=== PATIENT | male | born 1935 | race Caucasian/White ===

== ENCOUNTER → 2016-05-15 | Outpatient (CLI) | payer OTHER ==
[~2016-05-15] MED LIST: ALROPS OPR; AMLO-110 PO; ASPI81TA28 PO; ATOR-22 PO; BRIM0.2S OPR; GLIP-197 PO; LATA0.5S OPB; LSN/2025 PO; LUTE6CAP PO; MULT-845 PO; VLM5CL
[2016-05-15 12:32] LABS: ALT/SGPT 30 U/L (12-78); AST/SGOT 15 U/L (15-37); BLOOD UREA NITROGEN 30 mg/dl (7-18); BUN/CREATININE RATIO 23.3 (10-20); CARBON DIOXIDE 31 mmol/L (21-32); CHLORIDE 101 mmol/L (98-107); CHOLESTEROL 139 mg/dl (0-200); GLUCOSE 160 mg/dl (70-99); SODIUM 141 mmol/L (136-145)
[2016-05-15 12:43] LABS: ALB/GLOB RATIO 1.2 (0.9-2); ALKALINE PHOSPHATASE 78 U/L (45-117); CHOLESTEROL/HDL RATIO 4.1; HDL CHOLESTEROL 34 mg/dl; LDL CHOLESTEROL CALCULATED 83 mg/dl; TRIGLYCERIDES 110 mg/dl (0-150); VERY LOW DENSITY LIPOPROT CALC 22 mg/dl
[2016-05-15 13:05] LABS: ESTIMATED AVERAGE GLUCOSE 169 mg/dl; HA1C FLAG Normal (Normal)
== END | disposition home or self-care (01) ==
LOC: C.LABBFT 08:27
PROVIDERS: ATTEND Internal Medicine
DX: E11.21 Type 2 diabetes mellitus with diabetic nephropathy (principal)

== ENCOUNTER → 2016-12-14 | Outpatient (CLI) | payer OTHER ==
[2016-12-14 12:10] LABS: MEAN CELL VOLUME 96.2 fL (80-100); MEAN CORPUSCULAR HEMOGLOBIN 30.8 pg (25-34); MEAN PLATELET VOLUME 10.6 fL (7.4-10.4); PLATELET COUNT 349 K/uL (130-400); RED BLOOD COUNT 4.68 M/uL (4.7-6.1); WHITE BLOOD COUNT 7.83 K/uL (4.8-10.8)
[2016-12-14 12:25] LABS: ALT/SGPT 33 U/L (12-78); BLOOD UREA NITROGEN 36 mg/dl (7-18); BUN/CREATININE RATIO 27.6 (10-20); CALCIUM 9.3 mg/dl (8.5-10.1); CARBON DIOXIDE 30 mmol/L (21-32); CHLORIDE 106 mmol/L (98-107); CHOLESTEROL 139 mg/dl (0-200); GLUCOSE 170 mg/dl (70-99); POTASSIUM 3.6 mmol/L (3.5-5.1); SODIUM 142 mmol/L (136-145); TRIGLYCERIDES 80 mg/dl (0-150); VERY LOW DENSITY LIPOPROT CALC 16 mg/dl
[2016-12-14 12:31] LABS: ESTIMATED AVERAGE GLUCOSE 174 mg/dl; HA1C FLAG Normal (Normal)
[2016-12-14 12:36] LABS: ALB/GLOB RATIO 1.1 (0.9-2); ALKALINE PHOSPHATASE 74 U/L (45-117); AST/SGOT 14 U/L (15-37); CHOLESTEROL/HDL RATIO 4.1; HDL CHOLESTEROL 34 mg/dl; LDL CHOLESTEROL CALCULATED 89 mg/dl
[2016-12-14 12:46] LABS: RATIO 9.8 mcg/mg (0-30.0)
== END | disposition home or self-care (01) ==
LOC: C.LABBFT 08:24
PROVIDERS: ATTEND Internal Medicine
DX: E11.21 Type 2 diabetes mellitus with diabetic nephropathy (principal)

== ENCOUNTER → 2017-01-07 | Outpatient (CLI) | payer OTHER | END | disposition home or self-care (01) | LOC: C.LABBFT 12:10 | PROVIDERS: ATTEND Internal Medicine | DX: Z12.5 Encounter for screening for malignant neoplasm of prostate (principal) ==

== ENCOUNTER → 2017-08-19 | Outpatient (CLI) | payer OTHER ==
[2017-08-19 13:09] LABS: HEMOGLOBIN A1C 7.1 % (4.5-5.6)
[2017-08-19 13:16] LABS: BLOOD UREA NITROGEN 29 mg/dl (7-18); CREATININE 1.41 mg/dl (0.60-1.40); GLUCOSE 149 mg/dl (70-99)
[2017-08-19 13:17] LABS: ALBUMIN 3.7 gm/dl (3.4-5.0); ALT/SGPT 28 U/L (12-78); AST/SGOT 15 U/L (15-37); CALCIUM 9.3 mg/dl (8.5-10.1); CARBON DIOXIDE 32 mmol/L (21-32); POTASSIUM 4.1 mmol/L (3.5-5.1); SODIUM 138 mmol/L (136-145)
[2017-08-19 13:28] LABS: ALKALINE PHOSPHATASE 82 U/L (45-117); CHOLESTEROL 140 mg/dl (0-200); LDL CHOLESTEROL CALCULATED 82 mg/dl
== END | disposition home or self-care (01) ==
LOC: C.LABBFT 08:36
PROVIDERS: ATTEND Internal Medicine
DX: E11.65 Type 2 diabetes mellitus with hyperglycemia (principal)

== ENCOUNTER 2024-09-14 11:27 | Inpatient (IN) ==
--- NOTE | 2024-09-14 12:13 | XRay Report ---
XR chest 1V not portable CLINICAL HISTORY: Chest pain, nonspecific COMPARISON STUDY: 01/05/2024 FINDINGS: Heart size and pulmonary vasculature are normal. No effusion, consolidation, or pneumothora x. IMPRESSION: No acute findings. ACT 112: Negative or not required by law. Electronically signed by: Vinod Munoz M.D. 09/14/2024 12:12 PM
[2024-09-14 12:14] LABS: Basophils # (auto) 0.07 K/uL (0.00-0.20); Basophils % (auto) 0.6 %; Eosinophils # (auto) 0.05 K/uL (0.00-0.50); Eosinophils % (auto) 0.4 %; Hematocrit (blood only) 44.6 % (42.0-52.0); Hemoglobin 14.1 g/dl (14.0-18.0); Immature Granulocytes # (auto) 0.14 K/uL (0.01-0.20); Immature Granulocytes % (auto) 1.1 %; Lymphocytes # (auto) 1.09 K/uL (1.20-3.40); Lymphocytes % (auto) 8.9 %; Mean Corpuscular Hemoglobin 31.1 pg (25.0-34.0); Mean Corpuscular Hgb Conc 31.6 g/dL (32.0-36.0); Mean Corpuscular Volume 98.5 fL (80.0-100.0); Monocytes % (auto) 7.3 %; Neutrophils # (auto) 10.02 K/uL (1.40-6.50); Neutrophils % (auto) 81.7 %; Platelet Count 335 K/uL (130-400); RDW Coefficient of Variation 15.7 % (11.5-14.5); Red Blood Count 4.53 M/uL (4.70-6.10); White Blood Count 12.27 K/ul (4.8-10.8)
[2024-09-14 12:30] LABS: Albumin Globulin Ratio 1.1 (0.9-2); BUN Creatinine Ratio 29.6 (10-20); Bilirubin,Total 0.8 mg/dl (0.2-1.0); Calcium 9.9 mg/dl (8.6-10.3); Creatinine Clr Calc Pharmacy 38.3 ml/min; Globulin 3.6 gm/dl (2.5-4.0); Total Protein 7.6 gm/dl (6.0-8.3)
[2024-09-14 12:42] LABS: INR 1.1 (0.9-1.1); Partial Thromboplastin Ratio 1.2; Partial Thromboplastin Time 32 Seconds (21-31); Prothrombin Time 11.4 Seconds (9.0-12.0)
[2024-09-14 12:45] LABS: Influenza A virus by PCR Negative (Neg); Influenza B virus by PCR Negative (Neg); RSV by PCR Negative (Neg); SARS CoV2 RNA(COVID-19) Ceph NEGATIVE (Negative)
[2024-09-14 12:46] LABS: Troponin I High Sensitivity 398.9 pg/ml (0-20)
--- NOTE | 2024-09-14 13:18 | Emergency Department Note ---
Impression & Plan Dyspnea, Generalized weakness, Elevated troponin, CHF (congestive heart failure) ED Provider Note ED Provider Note NAME: DARLINE GAINES AGE:88 SEX: Male : 1935 ARRIVES VIA: Private vehicle INFORMANT: Patient ED PROVIDER(s): Theresa Cook DO CHIEF COMPLAINT: Weakness, shortness of breath HPI: This is an 88-year-old male presents emergency department due to concern for weakness, fatigue, cough, and shortness of breath. Patient states symptoms began on Wednesday. He states his breathing has worsened throughout the week. Patient denies any accompanying chest pain or pressure. He states he has had a decreased appetite although no overt nausea or vomiting. No change in urine or stools. No recent leg swelling. He does use furosemide daily and has not missed or skipped any doses. He denies any known sick contacts. He states he said subjective fevers and chills. No recent travel or change in medications. He states he has chronic nasal congestion and discharge, no sore throat. He has had a prior stress test and echo and does follow with pulmonology due to a history of COPD. Patient is not very active at baseline due to visual impairment. PAST MEDICAL HISTORY:See Below PAST SURGICAL HISTORY:See Below FAMILY HISTORY:See Below SOCIAL HISTORY:See Below HOME MEDICATIONS:See Below ALLERGIES:See Below VITALS:See Below PHYSICAL EXAMINATION: GENERAL: alert, well appearing, well nourished, no distress, non-toxic EYE EXAM: normal conjunctiva, PERRL and EOM's grossly intact OROPHARYNX: no exudate, no erythema, lips, buccal mucosa, and tongue normal and mucous membranes are moist NECK: supple, no nuchal rigidity, no adenopathy, non-tender LUNGS: Clear to auscultation. Normal chest wall mechanics, no w/r/r HEART: no murmurs, S1 normal and S2 normal ABDOMEN: abdomen soft, non-tender, normo-active bowel sounds, no masses, no rebound or guarding. BACK: Back is symmetrical on inspection and there is no deformity, no midline tenderness, no CVA tenderness. SKIN: no rashes, petechiae, orbruising UPPER EXTREMITIES: upper extremities are grossly normal. FROM, nml pulses b/l. LOWER EXTREMITIES: No pitting edema. FROM, nml pulses b/l. NEURO EXAM: Normal sensorium, cranial nerves II-XII grossly intact, normal speech, no facial droop,nogross weakness of arms, no gross weakness of legs. Gross sensation intact. No ataxia. Vital Signs: reviewed and remarkable Differential Diagnosis: pneumonia, bronchitis, COPD/Asthma exacerbation, pneumothorax, pulmonary embolism, congestive heart failure, acute coronary syndrome, as well as others were considered MEDICAL DECISION MAKING: This is an 88-year-old male presents emergency department due to concern for increased fatigue, cough, shortness of breath. Patient was afebrile and hemodynamically stable on arrival. Labs drawn and sent, IV established, EKG and chest x-ray performed at bedside and interpreted by me and patient monitored on telemetry. Patient with nonspecific EKG changes, troponin found to be significantly elevated. In light of this BNP added. I did review prior cardiology evaluations. I discussed all results with patient and need for further evaluation and monitoring. I discussed case with on-call [facility] cardiology who agreed with plan for a more urgent echo. Order for echo was placed and tech came to bedside. Case discussed with hospitalist team additionally for further evaluation and management. Patient was given a dose of IV Lasix in the emergency department as BNP was markedly elevated also. Patient was noted to have frequent PVCs on telemetry. Patient states this is not a new finding and has happened previously. Consultation(s): 1327: Discussed with Dr. Lopez, [facility] cardiology. Agrees with plan to order echo. 1425: Discussed with Dr. Rey, [place] hospitalist team, for additional evaluation and mgmt. ER Treatment Provided: See below 1358: ocular care technologist at bedside, patient updated on plan. Diagnostics Interpreted By Me: -ECG: Normal sinus at 82, leftward axis, right bundle branch block, PVCs noted, nonspecific ST/T wave changes -Cardiac Monitoring: An order was placed for continuous cardiac monitoring. The monitor shows a rate of 80 with normal sinus rhythm. -Laboratory studies: As stated above and show below. -Imaging studies: cxr: No cardiomegaly, no wide mediastinum, no pleural effusion, no focal consolidation, possible increased interstitial markings in bilateral lower lobes Triage Nursing Note Reviewed Prior/Outside Records Reviewed -dobutamine stress echo from November 2022 reviewed, echo from April 2024 reviewed Critical Care: Critical care of 41min performed to assess and manage high likelihood of life-threatening CHF, involving labs and imaging performed with assessment to evaluate dyspnea and weakness diagnosis with frequent reassessment. This time includes bedside time, treatment discussions with patient/family/consultants, documentation time and excludes procedure time. 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 50% Gout Macular degeneration History of gout History of Holter monitoring (11/2023) pt doesn't know result details, reports he was told it was nothing to worry about. Legally blind in left eye, as defined in [place] History of skin cancer removal ,left scalp was most recent procedure for skin cancer , august 2023. Lung cancer (12/2023) dx 12/2023 - radiation feb 06 - feb 11 2024. scan ? type Apr 2024 [facility]: pt doesn't know results at current, upcoming appointment addy cancer may 24 2024. Left hip pain History of colon polyps Right ear impacted cerumen Hip tendinitis Degenerative arthritis of knee, bilateral Left leg pain Glaucoma Internal hemorrhoids Legally blind in right eye PVC (premature ventricular contraction) Sinus bradycardia Tubular adenoma of colon (~06/03/15) repeat in 5 years History of pleural effusion Tubular adenoma of colon pt not sure details of findings with most recent colonoscopy 11/2023. History of sinus bradycardia Pulmonary nodule following with Dr. 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 Pennington at [facility] BPH (benign prostatic hyperplasia) History of kidney stones History of COVID-19 (~04/10/20) not admitted, resolved Surgical History History of carpal tunnel surgery of right wrist (02/2024) History of lung biopsy CT-guided biopsy 01/05/24 Hx of eye surgery Rt eye x 3, corneal implant, stent and detached retina repair Hx of colonoscopy with polypectomy Hx of vasectomy History of squamous cell carcinoma excision No chemo/SRT History of tooth extraction all upper teeth removed History of bilateral cataract extraction (~1979) History of cardiac cath "early "--no stents done in [place] Family History (Updated 09/14/24 @ 19:37 by Tao Rey MD) Father , age 42 Colon cancer Mother , age 81; had multiple MIs Diabetes Heart disease Stroke Family history of diabetes mellitus Myocardial infarction Aunt Diabetes Brother , 75 Fungal meningitis Other No family history of adverse response to anesthesia Denies family history of Ovarian cancer Prostate cancer Breast cancer Social History (Updated 09/14/24 @ 19:37 by Tao Rey MD) Smoking Status: Former smoker Tobacco Type: Cigarettes, Pipe and Cigars Age Started Using Tobacco: 17; Age Quit Using Tobacco: 66; packs per day: 1.5; Second Hand Exposure: No; Do You Dip or Chew Tobacco: No; Hx Alcohol Use: Yes Alcohol type: beer Alcohol Intake Frequency: 2-4 x/Month Hx Substance Use: No Preferred Language: Amharic Communication Ability: Effective Visual Impairment: No Limitations Hearing Ability: Use of Hearing Aid Applique Cutter Required: No Beliefs That Will Affect Care: None marital status: marital status details: twice Current Living Situation: Spouse Current Living Situation Comment: and 's son current occupational status: retired 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 [employer] How many Children do You have: 3 How many Children do You have Comment: 3 sons Other Information That Helps Us Care for You: No Feels Safe at Home: No Is there a partner from a previous relationship who is making you feel unsafe now?: No Any Concerns about Your Family Situation: No Would You Like to Speak to Someone About Your Situation: No Safety Concerns: Feels Safe At This Time Childhood Exposure to Second-Hand Smoke: No Diet: regular Diet Comment: no added salt caffeine: Yes Dental Care, Regularly: Yes Physical Activity Frequency: Does not Exercise Seatbelt Use: always Sunscreen Use: No Assistive Devices: Crutches and Walker Allergies Allergies Allergy/AdvReac Type Severity Reaction Status Date / Time No Known Allergies Allergy Verified 07/27/24 13:11 Home Meds Home Medications Medication Instructions Recorded Confirmed aspirin 81 mg tablet 81 mg PO HS 03/10/19 09/14/24 lutein 6 mg tablet 6 mg PO HS 03/10/19 09/14/24 atorvastatin 40 mg tablet 20 mg PO HS 07/30/20 09/14/24 lisinopril 40 mg tablet 40 mg PO QAM 07/30/20 09/14/24 multivitamin,[id number]-[id number]-My-[id number]-min 1 tab PO QAM 07/30/20 09/14/24 tamsulosin 0.4 mg capsule 0.4 mg PO DAILY 07/30/20 09/14/24 metoprolol succinate 50 mg 50 mg PO QPM 08/14/20 09/14/24 tablet,extended release 24 hr amlodipine 10 mg tablet 10 mg PO QAM 02/13/21 09/14/24 dorzolamide 2 %-timolol 0.5 % (PF) 1 drp OPB BID 06/25/22 09/14/24 eye drops erythromycin 5 mg/gram (0.5 %) eye 1 applic OPR TID 06/25/22 09/14/24 ointment hard/soft/gas permeable prods 06/25/22 09/14/24 (Systane Contacts eye drops) latanoprost 0.005 % eye drops 1 drp OPB HS 06/25/22 09/14/24 loteprednol etabonate 0.5 % eye 1 drp OPR DAILY 06/25/22 09/14/24 drops,suspension spironolactone 50 mg tablet 50 mg PO QAM 07/27/23 09/14/24 tiotropium 2.5 mcg-olodaterol 2.5 2 puff inhalation QAM 05/08/24 09/14/24 mcg/actuation mist for inhalation (Stiolto Respimat) vit C 250 mg-vit E 90 mg-zinc 40 1 tab PO BID 05/08/24 09/14/24 mg-copper 1 [id number] capsule (PreserVision AREDS-2) empagliflozin 10 mg tablet 10 mg PO QAM 07/27/24 09/14/24 (Jardiance) furosemide 20 mg tablet 20 mg PO QAM 07/27/24 09/14/24 glipizide 5 mg tablet 7.5 mg PO QPM 09/14/24 09/14/24 glipizide 5 mg tablet 10 mg PO QAM 09/14/24 09/14/24 Results & Data (ED) Vital Signs Vital Signs - 24 hr 09/14/24 11:39 09/14/24 11:59 09/14/24 12:04 Temperature 36.8 C Temperature Source Temporal Artery Scan Pulse Rate 78 80 Pulse Rate [Left Finger] 83 Pulse Rhythm [Left Finger] Pulse Strength [Left Finger] Respiratory Rate 18 23 Respiratory Effort / Characteristics Non-Labored Respiratory Depth Normal Respiratory Pattern Blood Pressure 117/68 Blood Pressure [Right Arm] 142/77 H Blood Pressure Mean 84 Blood Pressure Mean [Right Arm] 98 Blood Pressure Position [Right Arm] Pulse Oximetry 93 94 Oxygen Delivery Method Room Air Sepsis Recent Fever Within 48 Hours No Sepsis New/Unexplained Change in Mental Status No Sepsis Action Taken by Nursing No Action Required 09/14/24 13:28 09/14/24 14:19 Temperature Temperature Source Pulse Rate Pulse Rate [Left Finger] 72 72 Pulse Rhythm [Left Finger] Regular Regular Pulse Strength [Left Finger] Normal Normal Respiratory Rate 16 16 Respiratory Effort / Characteristics Non-Labored Spontaneous Non-Labored Spontaneous Respiratory Depth Normal Normal Respiratory Pattern Regular Regular Blood Pressure Blood Pressure [Right Arm] 146/70 H 137/57 L Blood Pressure Mean Blood Pressure Mean [Right Arm] 95 83 Blood Pressure Position [Right Arm] Sitting Sitting Pulse Oximetry 98 96 Oxygen Delivery Method Room Air Room Air Sepsis Recent Fever Within 48 Hours Sepsis New/Unexplained Change in Mental Status Sepsis Action Taken by Nursing Laboratory Data 09/15/24 07:17 09/15/24 07:17 Lab Results 09/14/24 09/14/24 09/14/24 Range/Units 11:46 11:52 13:13 WBC 12.27 H (4.8-10.8) K/ul RBC 4.53 L (4.70-6.10) M/uL Hgb 14.1 (14.0-18.0) g/dl Hct 44.6 (42.0-52.0) % MCV 98.5 (80.0-100.0) fL MCH 31.1 (25.0-34.0) pg MCHC 31.6 L (32.0-36.0) g/dL RDW Std Deviation 57.0 H (36.4-46.3) fL RDW Coeff of Juan 15.7 H (11.5-14.5) % Plt Count 335 (130-400) K/uL MPV 10.0 (9.4-12.4) fL Immature Gran % (Auto) 1.1 % Neut % (Auto) 81.7 % Lymph % (Auto) 8.9 % Wolfe % (Auto) 7.3 % Eos % (Auto) 0.4 % Baso % (Auto) 0.6 % Neut # (Auto) 10.02 H (1.40-6.50) K/uL Lymph # (Auto) 1.09 L (1.20-3.40) K/uL Wolfe # (Auto) 0.90 H (0.11-0.59) K/uL Eos # (Auto) 0.05 (0.00-0.50) K/uL Baso # (Auto) 0.07 (0.00-0.20) K/uL Immature Gran # (Auto) 0.14 (0.01-0.20) K/uL PT 11.4 (9.0-12.0) Seconds INR 1.1 (0.9-1.1) APTT 32 H (21-31) Seconds PTT Ratio 1.2 Sodium 136 (136-145) mmol/L Potassium 5.0 (3.5-5.1) mmol/L Chloride 99 (98-107) mmol/L Carbon Dioxide 31 (21-32) mmol/L Anion Gap 6 (3-11) BUN 45 H (6-23) mg/dl Creatinine 1.52 H (0.6-1.4) mg/dl Est Cr Clr Drug Dosing 38.3 ml/min eGFR 44.35 BUN/Creatinine Ratio 29.6 H (10-20) Glucose 221 H (70-99(Fasting)) mg/dl Calcium 9.9 (8.6-10.3) mg/dl Total Bilirubin 0.8 (0.2-1.0) mg/dl AST 29 (13-39) U/L ALT 35 (7-52) U/L Alkaline Phosphatase 91 (34-104) U/L Troponin I High Sens 398.9 H* (0-20) pg/ml B-Natriuretic Peptide 814 H (0-100) pg/ml Total Protein 7.6 (6.0-8.3) gm/dl Albumin 4.0 (3.4-5.0) gm/dl Globulin 3.6 (2.5-4.0) gm/dl Albumin/Globulin Ratio 1.1 (0.9-2) SARS-CoV-2 (PCR) NEGATIVE (Negative) Influenza Type A (PCR) Negative (Neg) Influenza Type B (PCR) Negative (Neg) RSV (RT-PCR) Negative (Neg) 09/14/24 Range/Units 14:07 WBC (4.8-10.8) K/ul RBC (4.70-6.10) M/uL Hgb (14.0-18.0) g/dl Hct (42.0-52.0) % MCV (80.0-100.0) fL MCH (25.0-34.0) pg MCHC (32.0-36.0) g/dL RDW Std Deviation (36.4-46.3) fL RDW Coeff of Juan (11.5-14.5) % Plt Count (130-400) K/uL MPV (9.4-12.4) fL Immature Gran % (Auto) % Neut % (Auto) % Lymph % (Auto) % Wolfe % (Auto) % Eos % (Auto) % Baso % (Auto) % Neut # (Auto) (1.40-6.50) K/uL Lymph # (Auto) (1.20-3.40) K/uL Wolfe # (Auto) (0.11-0.59) K/uL Eos # (Auto) (0.00-0.50) K/uL Baso # (Auto) (0.00-0.20) K/uL Immature Gran # (Auto) (0.01-0.20) K/uL PT (9.0-12.0) Seconds INR (0.9-1.1) APTT (21-31) Seconds PTT Ratio Sodium (136-145) mmol/L Potassium (3.5-5.1) mmol/L Chloride (98-107) mmol/L Carbon Dioxide (21-32) mmol/L Anion Gap (3-11) BUN (6-23) mg/dl Creatinine (0.6-1.4) mg/dl Est Cr Clr Drug Dosing ml/min eGFR BUN/Creatinine Ratio (10-20) Glucose (70-99(Fasting)) mg/dl Calcium (8.6-10.3) mg/dl Total Bilirubin (0.2-1.0) mg/dl AST (13-39) U/L ALT (7-52) U/L Alkaline Phosphatase (34-104) U/L Troponin I High Sens 449.4 H* (0-20) pg/ml B-Natriuretic Peptide (0-100) pg/ml Total Protein (6.0-8.3) gm/dl Albumin (3.4-5.0) gm/dl Globulin (2.5-4.0) gm/dl Albumin/Globulin Ratio (0.9-2) SARS-CoV-2 (PCR) (Negative) Influenza Type A (PCR) (Neg) Influenza Type B (PCR) (Neg) RSV (RT-PCR) (Neg) Administered Medications Aspirin (Aspirin 81 Mg Ectab) 81 mg PO QAM [facility] Stop: 10/15/24 08:59 Last Admin: 09/15/24 08:14 Dose: 81 mg Documented By: MISTY Atorvastatin Calcium (Atorvastatin 20 Mg Tab) 20 mg PO [facility] Stop: 10/14/24 20:59 Last Admin: 09/14/24 19:58 Dose: 20 mg Documented By: RAPHAEL Doxycycline Hyclate (Doxycycline Hyclate 100 Mg Cap) 100 mg PO BID [facility] Stop: 09/19/24 20:59 Last Admin: 09/15/24 08:14 Dose: 100 mg Documented By: Admin: 09/14/24 19:59 Dose: 100 mg Documented By: RAPHAEL Empagliflozin (Empagliflozin 10 Mg Tab) 10 mg PO QAM [facility] Stop: 10/15/24 08:59 Last Admin: 09/15/24 08:15 Dose: 10 mg Documented By: MISTY Erythromycin (Erythromycin Op Oint 5 Mg/Gm 3.5 Gm Tube) 1 appln OPR TID [facility] Stop: 09/24/24 20:59 Last Admin: 09/15/24 13:57 Dose: 1 appln Documented By: Admin: 09/15/24 08:13 Dose: 1 appln Documented By: Admin: 09/14/24 21:31 Dose: Not Given Documented By: RAPHAEL Guaifenesin (Guaifenesin 600 Mg Tabcr) 1,200 mg PO Q12 [facility] Stop: 10/14/24 20:59 Last Admin: 09/15/24 08:14 Dose: 1,200 mg Documented By: Admin: 09/14/24 19:58 Dose: 1,200 mg Documented By: RAPHAEL Heparin Sodium/Dextrose (Heparin 97576 Unit/500 Ml D5w) 25,000 units in 500 mls @ 26 mls/hr IV .[id number] [facility]; Protocol Stop: 10/14/24 15:44 Last Titration: 09/15/24 19:05 Dose: 1,300 units/hr, 26 mls/hr Documented By: MISTY Co-signed By: JAQUELIN Admin: 09/15/24 13:57 Dose: 1,300 units/hr, 26 mls/hr Documented By: MISTY Co-signed By: ENS Titration: 09/15/24 13:57 Dose: Infused Documented By: MISTY Co-signed By: ENS Titration: 09/15/24 08:15 Dose: 1,300 units/hr, 26 mls/hr Documented By: MISTY Co-signed By: EP Titration: 09/15/24 07:00 Dose: 1,150 units/hr, 23 mls/hr Documented By: MISTY Co-signed By: KRT Titration: 09/14/24 23:46 Dose: 1,150 units/hr, 23 mls/hr Documented By: RAPHAEL Co-signed By: RACHEL Titration: 09/14/24 19:07 Dose: 1,000 units/hr, 20 mls/hr Documented By: WADE Co-signed By: RAPHAEL Admin: 09/14/24 16:33 Dose: 1,000 units/hr, 20 mls/hr Documented By: PETE Co-signed By: REZA Insulin Aspart (Insulin Aspart Per Unit Charge) 0 units SC ACHS [facility] Stop: 10/14/24 16:57 Last Admin: 09/15/24 16:52 Dose: 4 units Documented By: MISTY Co-signed By: JUAN Admin: 09/15/24 11:48 Dose: 2 units Documented By: MISTY Co-signed By: LUIS MIGUEL Admin: 09/15/24 08:12 Dose: 2 units Documented By: MISTY Co-signed By: LUIS MIGUEL Admin: 09/14/24 21:31 Dose: Not Given Documented By: Admin: 09/14/24 18:10 Dose: 3 units Documented By: WADE Co-signed By: LUIS MIGUEL Latanoprost (Latanoprost 0.005% Op Soln 2.5 Ml Btl) 1 drops OPB HS [facility] Stop: 10/14/24 20:59 Last Admin: 09/14/24 21:22 Dose: 1 drops Documented By: RAPHAEL Levalbuterol HCl (Levalbuterol 1.25 Mg/3 Ml Neb) 1.25 mg NEB TIDR [facility] Stop: 10/14/24 18:59 Last Admin: 09/15/24 19:58 Dose: 1.25 mg Documented By: Admin: 09/15/24 12:38 Dose: 1.25 mg Documented By: Admin: 09/15/24 07:15 Dose: 1.25 mg Documented By: Admin: 09/14/24 20:09 Dose: 1.25 mg Documented By: SUKI Metoprolol Succinate (Metoprolol Succ 50mg Ext Rel Tab) 50 mg PO QPM [facility] Stop: 10/14/24 20:59 Last Admin: 09/14/24 19:59 Dose: 50 mg Documented By: RAPHAEL Miscellaneous (Hard/Soft/Gas Permeable Prods [Systane Contacts] Drops~Order Awaiting Action) 1 each N/A QS [facility] Stop: 10/15/24 00:00 Last Admin: 09/15/24 14:30 Dose: Not Given Documented By: Admin: 09/15/24 08:13 Dose: Not Given Documented By: Admin: 09/15/24 01:43 Dose: Not Given Documented By: RAPHAEL Multivitamins/Minerals (Cerovite Adv Formula Tab) 1 tab PO BID [facility] Stop: 10/15/24 08:59 Last Admin: 09/15/24 08:14 Dose: 1 tab Documented By: MISTY Tamsulosin HCl (Tamsulosin Hcl 0.4 Mg Cap) 0.4 mg PO DAILY [facility] Stop: 10/15/24 08:59 Last Admin: 09/15/24 08:14 Dose: 0.4 mg Documented By: MISTY Umeclidinium/Vilanterol (Umeclidinium/Vilanterol 62.5/25mcg 7 Puffs/Inhaler) 1 puffs INH QAM [facility] Stop: 10/15/24 08:59 Last Admin: 09/15/24 08:32 Dose: 1 puffs Documented By: MISTY Discontinued Medications Aspirin (Aspirin 81 Mg Ectab) 81 mg PO NOW STA Stop: 09/14/24 15:35 Last Admin: 09/14/24 16:07 Dose: 81 mg Documented By: PETE Doxycycline Hyclate (Doxycycline Hyclate 100 Mg Cap) 100 mg PO NOW STA Stop: 09/14/24 15:31 Last Admin: 09/14/24 16:07 Dose: 100 mg Documented By: PETE Furosemide (Furosemide 40 Mg/4 Ml Vial) 40 mg IV ONE ONE Stop: 09/14/24 14:09 Last Admin: 09/14/24 14:17 Dose: 40 mg Documented By: REZA Heparin Sodium (Porcine) (Heparin Sod (Porcine) 1000 Unit/Ml) 3,000 units IV NOW ONE Stop: 09/15/24 00:16 Last Admin: 09/15/24 00:13 Dose: 3,000 units Documented By: RAPHAEL Co-signed By: RACHEL Heparin Sodium (Porcine) (Heparin Sod (Porcine) 1000 Unit/Ml) 3,000 units IV NOW ONE Stop: 09/15/24 08:05 Last Admin: 09/15/24 08:32 Dose: 3,000 units Documented By: MISTY Co-signed By: JUAN Heparin Sodium/Dextrose (Heparin Iv Adult Wt-Based Low-Dose *No* Initial Bolus Protocol) 1 each IV ONE STA; Protocol Stop: 09/14/24 15:30 Last Admin: 09/14/24 16:34 Dose: Not Given Documented By: PETE Levalbuterol HCl (Levalbuterol 1.25 Mg/3 Ml Neb) 1.25 mg NEB NOW STA Stop: 09/14/24 15:30 Last Admin: 09/14/24 16:08 Dose: 1.25 mg Documented By: GEGE Miscellaneous (Dorzolamide-Timolol (Pf) 2-0.5 % Drops~Order Awaiting Action) 1 each N/A QS [facility] Stop: 10/15/24 00:00 Last Admin: 09/15/24 14:30 Dose: Not Given Documented By: Admin: 09/15/24 08:13 Dose: Not Given Documented By: Admin: 09/15/24 01:42 Dose: Not Given Documented By: RAPHAEL Miscellaneous (Loteprednol Etabonate 0.5 % Drops,Suspension~Order Awaiting Action) 1 each N/A QS [facility] Stop: 10/15/24 00:00 Last Admin: 09/15/24 14:30 Dose: Not Given Documented By: Admin: 09/15/24 08:13 Dose: Not Given Documented By: Admin: 09/15/24 01:43 Dose: Not Given Documented By: RAPHAEL Imaging Data Radiologist's Impression: Chest X-Ray 09/14/24 11:42 XR chest 1V not portable CLINICAL HISTORY: Chest pain, nonspecific COMPARISON STUDY: 01/05/2024 FINDINGS: Heart size and pulmonary vasculature are normal. No effusion, consolidation, or pneumothorax. IMPRESSION: No acute findings. ACT 112: Negative or not required by law. Electronically signed by: Vinod Munoz M.D. 09/14/2024 12:12 PM Discharge Plan Visit Data Chief Complaint: Flu Like Symptoms Stated Complaint: COUGH, CHILLS, SWEATS ED Provider: Theresa Cook Discharge Problem: Dyspnea, Generalized weakness, Elevated troponin, CHF (congestive heart failure) Patient Disposition: Admitted As Inpatient Condition: Fair Discharge Instructions Interventions: ED Discharge Assessment Last Done: 09/14/24 16:29
[2024-09-14] MEDS: FUROSEMIDE 40 MG/4 ML VIAL IV ONE (14:17)
--- NOTE | 2024-09-14 14:24 | History & Physical Report ---
Date of Service September 14, 2024 Assessment & Plan (1) COPD with exacerbation: (2) Abnormal chest x-ray: (3) Elevated troponin: (4) CAD (coronary artery disease): (5) Hypercholesterolemia: (6) Hypertension: (7) Diabetes mellitus: (8) Adenocarcinoma of lower lobe of right lung: (9) Aortic stenosis: (10) BPH w urinary obs/LUTS: (11) Chronic kidney disease (CKD): Plan 88yo male with history of T2DM, HTN, BPH, CKD stage 3b, hyperlipidemia, presumed CAD, prior lung cancer (adenocarcinoma) of the right lung s/p XRT 2023, blindness of right eye, prior tobacco use, aortic stenosis, and COPD who presents from home with his with respiratory symptoms starting on Wednesday of this week. He has had cough, congestion, sputum production, dyspnea on exertion (worse than his typical baseline chronic CANALES), chills, no appetite, fatigue/weakness, and sore throat. Denies any chest pain or chest tightness this week. #COPD with exacerbation - -clinical history most c/w respiratory illness beginning on Wednesday of this week -he has known COPD and is having active wheezing today -COVID/flu/RSV negative; could easily have another viral process that triggered the illness -schedule Xopenex nebs TID -mucinex BID -flutter valve & incentive spirometer -defer on systemic steroids for now in light of possible cardiac issues as discussed below -will cover with narrow spectrum PO abx in the form of doxycycline 100mg BID -send sputum for culture if able to produce some -cont usual home inhalers #abnormal chest x-ray - -uncertain if the cxr findings represent pulmonary edema vs atypical lung infection vs other -he does not examine overtly volume overloaded -he is s/p lasix 40mg IV x 1 in the ER, but has only voided 1x since such -plan to repeat his cxr tomorrow to check for brewing pneumonia -follow UOP response to the lasix #positive troponin - -uncertain at this time if this represents type 1 VA vs type 2 VA (coronary occlusive event/NSTEMI vs myocardial demand ischemia) -he had an urgent echo in the ER due to the +troponin and this showed a new wall motion abnormality in the LV apex -2023 echo showed normal LV wall motion -he has presumed CAD based on prior records (2023 cardiology notes suggest presumed CAD) -same cardiology notes reference that the patient had a left heart cath in the and was told there was some CAD -in the event this was an ACS will start low-dose heparin infusion, give asa 81mg now, continue his beta jace, continue his statin -trend the troponin until the peak is seen -I discussed his case with Dr Lopez from [facility] who will provide formal consultation #question of acute HFpEF - -patient with multiple pulmonary symptoms, elevated BNP, and abnormal echo as above -s/p lasix in the ER -thus far no significant UOP with such -will follow the response, however, over the next few hours -hold his usual lasix/aldactone for now -labs in am -cont Jardiance -cont meto succ -hold lisinopril for now due to top-normal K level and potential need for more BP room for other cardiac meds #T2DM - -hold PO agents except Jardiance -add novolog SSI -BSGs ac/hs -DM diet #BPH - -cont flomax #HTN - -cont meto succ -cont flomax -s/p lasix IV in ER -hold amlodipine, hold lisinopril #CKD stage 3b - -Creatinine today is at baseline of 1.5 -hold lisinopril for now due to top-normal K level and the potential for rise in creatinine with diuresis -BMP am #aortic stenosis - -mild -no apparent symptoms from such #glaucoma - -cont usual eye drops #DVT proph - -low-dose heparin drip as above extensively updated at bedside at time of admission History of Present Illness Chief Complaint: cough, congestion, chills, poor appetite Primary Care Provider: Stephen Valentin, DO 88yo male with history of T2DM, HTN, BPH, CKD stage 3b, hyperlipidemia, presumed CAD, prior lung cancer (adenocarcinoma) of the right lung s/p XRT 2023, blindne ss of right eye, prior tobacco use, aortic stenosis, and COPD who presents from home with his with respiratory symptoms starting on Wednesday of this week. He has had cough, congestion, sputum production, dyspnea on exertion (worse than his typical baseline chronic CANALES), chills, no appetite, fatigue/weakness, and sore throat. Denies any chest pain or chest tightness this week. Had an episode yesterday of having nausea and he was able to have a good "burp" which relieved the nausea. No vomiting. No diarrhea. No travel or sick contacts. He has h/o COPD but does not use albuterol prn at home. Denies LE edema, orthopnea, PND - but he did have a "severe cough" all night last pm per his . Allergies Allergy/AdvReac Type Severity Reaction Status Date / Time No Known Allergies Allergy Verified 07/27/24 13:11 Home Medications Medication Instructions Recorded Confirmed Type aspirin 81 mg tablet 81 mg PO HS 03/10/19 09/14/24 History lutein 6 mg tablet 6 mg PO HS 03/10/19 09/14/24 History atorvastatin 40 mg tablet 20 mg PO HS 07/30/20 09/14/24 History lisinopril 40 mg tablet 40 mg PO QAM 07/30/20 09/14/24 History multivitamin,jj-[id number]-min 1 tab PO QAM 07/30/20 09/14/24 History tamsulosin 0.4 mg capsule 0.4 mg PO DAILY 07/30/20 09/14/24 History metoprolol succinate 50 mg 50 mg PO QPM 08/14/20 09/14/24 History tablet,extended release 24 hr amlodipine 10 mg tablet 10 mg PO QAM 02/13/21 09/14/24 History dorzolamide 2 %-timolol 0.5 % (PF) 1 drp OPB BID 06/25/22 09/14/24 History eye drops erythromycin 5 mg/gram (0.5 %) eye 1 applic OPR TID 06/25/22 09/14/24 History ointment hard/soft/gas permeable prods 06/25/22 09/14/24 History (Systane Contacts eye drops) latanoprost 0.005 % eye drops 1 drp OPB HS 06/25/22 09/14/24 History loteprednol etabonate 0.5 % eye 1 drp OPR DAILY 06/25/22 09/14/24 History drops,suspension spironolactone 50 mg tablet 50 mg PO QAM 07/27/23 09/14/24 History tiotropium 2.5 mcg-olodaterol 2.5 2 puff inhalation QAM 05/08/24 09/14/24 History mcg/actuation mist for inhalation (Stiolto Respimat) vit C 250 mg-vit E 90 mg-zinc 40 1 tab PO BID 05/08/24 09/14/24 History mg-copper 1 [id number] capsule (PreserVision AREDS-2) empagliflozin 10 mg tablet 10 mg PO QAM 07/27/24 09/14/24 History (Jardiance) furosemide 20 mg tablet 20 mg PO QAM 07/27/24 09/14/24 History glipizide 5 mg tablet 7.5 mg PO QPM 09/14/24 09/14/24 History glipizide 5 mg tablet 10 mg PO QAM 09/14/24 09/14/24 History Past Med/Surg History Problem List Abnormal chest x-ray COPD with exacerbation Elevated troponin (Acute) Generalized weakness (Acute) Dyspnea (Acute) Abnormal CT of the chest Thyroid nodule Weak urinary stream Cerumen impaction Anxiety about treatment 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 50% Gout Macular degeneration History of gout History of Holter monitoring (11/2023) pt doesn't know result details, reports he was told it was nothing to worry about. Legally blind in left eye, as defined in [place] History of skin cancer removal ,left scalp was most recent procedure for skin cancer , august 2023. Lung cancer (12/2023) dx 12/2023 - radiation feb 06 - feb 11 2024. scan ? type Apr 2024 [facility]: pt doesn't know results at current, upcoming appointment addy cancer may 24 2024. Left hip pain History of colon polyps Right ear impacted cerumen Hip tendinitis Degenerative arthritis of knee, bilateral Left leg pain Glaucoma Internal hemorrhoids Legally blind in right eye PVC (premature ventricular contraction) Sinus bradycardia Tubular adenoma of colon (~06/03/15) repeat in 5 years History of pleural effusion Tubular adenoma of colon pt not sure details of findings with most recent colonoscopy 11/2023. History of sinus bradycardia Pulmonary nodule following with Dr. 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 Pennington at [facility] BPH (benign prostatic hyperplasia) History of kidney stones History of COVID-19 (~04/10/20) not admitted, resolved Surgical History History of carpal tunnel surgery of right wrist (02/2024) History of lung biopsy CT-guided biopsy 01/05/24 Hx of eye surgery Rt eye x 3, corneal implant, stent and detached retina repair Hx of colonoscopy with polypectomy Hx of vasectomy History of squamous cell carcinoma excision No chemo/SRT History of tooth extraction all upper teeth removed History of bilateral cataract extraction (~1979) History of cardiac cath "early "--no stents done in [place] Family History (Updated 09/14/24 @ 19:37 by Tao Rey MD) Father , age 42 Colon cancer Mother , age 81; had multiple MIs Diabetes Heart disease Stroke Family history of diabetes mellitus Myocardial infarction Aunt Diabetes Brother , 75 Fungal meningitis Other No family history of adverse response to anesthesia Denies family history of Ovarian cancer Prostate cancer Breast cancer Social History (Updated 09/14/24 @ 19:37 by Tao Rey MD) Smoking Status: Former smoker Tobacco Type: Cigarettes, Pipe and Cigars Age Started Using Tobacco: 17; Age Quit Using Tobacco: 66; packs per day: 1.5; Second Hand Exposure: No; Do You Dip or Chew Tobacco: No; Hx Alcohol Use: Yes Alcohol type: beer Alcohol Intake Frequency: 2-4 x/Month Hx Substance Use: No Preferred Language: Croatian Communication Ability: Effective Visual Impairment: No Limitations Hearing Ability: Use of Hearing Aid Finished Cloth Examiner Required: No Beliefs That Will Affect Care: None marital status: marital status details: twice Current Living Situation: Spouse Current Living Situation Comment: and 's son current occupational status: retired 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 [employer] How many Children do You have: 3 How many Children do You have Comment: 3 sons Feels Safe at Home: No Is there a partner from a previous relationship who is making you feel unsafe now?: No Any Concerns about Your Family Situation: No Would You Like to Speak to Someone About Your Situation: No Childhood Exposure to Second-Hand Smoke: No Diet: regular Diet Comment: no added salt caffeine: Yes Dental Care, Regularly: Yes Physical Activity Frequency: Does not Exercise Seatbelt Use: always Sunscreen Use: No Assistive Devices: None Review of Systems Review of Systems: gen - fatigue/weakness since Wednesday of this week; no fevers; +chills; +appetite loss eyes - chronic blindness of right eye HENT - no ear pain; +sore throat; no runny nose CV - no chest pain or tightness; no edema; no orthopnea or PND pulm - cough/congestion/sputum production; +CANALES above his usual amount of dyspnea (gets dyspneic at baseline just walking a flight of stairs) GI - nausea yesterday but no emesis; no diarrhea - no dysuria musculo - arthritis various joints; no myalgias endo - he is a diabetic skin - no rash neuro - no headache Physical Exam Physical Exam: gen - coughing, but no distress; laying in bed comfortably; awake/alert eyes - surgical pupils b/l; crusty eyelids on right HENT - hearing aids in place; mouth - MMM; no lesions neck - no JVD, no masses, no thyroidmegaly heart - RRR, s1 s2, 2/6 systolic murmur RUSB with minimal radiation to R carotid lungs - b/l basilar rales with end-exp wheezes; no increased work of breathing abd - soft NT ND BS+; no HSM ext - no edema, pulses b/l feet 2+ neuro - strength 5/5 x 4 exts; DTRs 1+ b/l upper and lower exts skin - no rash psych - awake, alert, oriented Results & Data Results & Data Vital Signs (Past 12 Hours) Vital Signs Temp Pulse Pulse Resp BP BP Pulse Ox 09/14/24 14:19 72 16 137/57 L 96 09/14/24 13:28 72 16 146/70 H 98 09/14/24 12:04 80 09/14/24 11:59 83 23 142/77 H 94 09/14/24 11:39 36.8 C 78 18 117/68 93 O2 Del Method 09/14/24 14:19 Room Air 09/14/24 13:28 Room Air 09/14/24 12:04 09/14/24 11:59 09/14/24 11:39 Room Air Laboratory Results Laboratory Results - last 24 hr 09/14/24 09/14/24 09/14/24 11:46 11:52 13:13 WBC 12.27 H RBC 4.53 L Hgb 14.1 Hct 44.6 MCV 98.5 MCH 31.1 MCHC 31.6 L RDW Std Deviation 57.0 H RDW Coeff of Juan 15.7 H Plt Count 335 MPV 10.0 Immature Gran % (Auto) 1.1 Neut % (Auto) 81.7 Lymph % (Auto) 8.9 Oliver % (Auto) 7.3 Eos % (Auto) 0.4 Baso % (Auto) 0.6 Neut # (Auto) 10.02 H Lymph # (Auto) 1.09 L Oliver # (Auto) 0.90 H Eos # (Auto) 0.05 Baso # (Auto) 0.07 Immature Gran # (Auto) 0.14 PT 11.4 INR 1.1 APTT 32 H PTT Ratio 1.2 Sodium 136 Potassium 5.0 Chloride 99 Carbon Dioxide 31 Anion Gap 6 BUN 45 H Creatinine 1.52 H Est Cr Clr Drug Dosing 38.3 eGFR 44.35 BUN/Creatinine Ratio 29.6 H Glucose 221 H POC Glucose Calcium 9.9 Total Bilirubin 0.8 AST 29 ALT 35 Alkaline Phosphatase 91 Troponin I High Sens 398.9 H* B-Natriuretic Peptide 814 H Total Protein 7.6 Albumin 4.0 Globulin 3.6 Albumin/Globulin Ratio 1.1 SARS-CoV-2 (PCR) NEGATIVE Influenza Type A (PCR) Negative Influenza Type B (PCR) Negative RSV (RT-PCR) Negative 09/14/24 09/14/24 09/14/24 14:07 16:58 17:42 WBC RBC Hgb Hct MCV MCH MCHC RDW Std Deviation RDW Coeff of Juan Plt Count MPV Immature Gran % (Auto) Neut % (Auto) Lymph % (Auto) Oliver % (Auto) Eos % (Auto) Baso % (Auto) Neut # (Auto) Lymph # (Auto) Oliver # (Auto) Eos # (Auto) Baso # (Auto) Immature Gran # (Auto) PT INR APTT PTT Ratio Sodium Potassium Chloride Carbon Dioxide Anion Gap BUN Creatinine Est Cr Clr Drug Dosing eGFR BUN/Creatinine Ratio Glucose POC Glucose 151 H Calcium Total Bilirubin AST ALT Alkaline Phosphatase Troponin I High Sens 449.4 H* 570.1 H* D B-Natriuretic Peptide Total Protein Albumin Globulin Albumin/Globulin Ratio SARS-CoV-2 (PCR) Influenza Type A (PCR) Influenza Type B (PCR) RSV (RT-PCR) Diagnostic Findings Chest X-Ray 09/14/24 11:42 XR chest 1V not portable CLINICAL HISTORY: Chest pain, nonspecific COMPARISON STUDY: 01/05/2024 FINDINGS: Heart size and pulmonary vasculature are normal. No effusion, consolidation, or pneumothorax. IMPRESSION: No acute findings. ACT 112: Negative or not required by law. Electronically signed by: Vinod Munoz M.D. 09/14/2024 12:12 PM EKG - my reading - NSR, RBBB, left axis deviation; subtle ST depression (about 1 box) V4-V6; artifact I/AVL Code Status & VTE Plan Code Status DNR/DNI - confirmed with patient in presence of his PG Care Time/CCT Total # of Minutes Spent Total Time Spent with Patient: Total time spent is greater than 50% in coordination of care (as documented) at patient's floor/unit and/or counseling patient: Coding Level of Care Code 66466 INT INP/OBS CARE 3/75MIN Diagnoses COPD with exacerbation J44.1 Abnormal chest x-ray R93.89 Elevated troponin R79.89 CAD (coronary artery disease) I25.10 Hypercholesterolemia E78.00 Hypertension I10 Diabetes mellitus E11.9 Adenocarcinoma of lower lobe of right lung C34.31 Aortic stenosis I35.0 BPH w urinary obs/LUTS N40.1; N13.8 Chronic kidney disease (CKD) N18.9
--- NOTE | 2024-09-14 14:58 | XCELERA ---
[id number]
[2024-09-14] MEDS: DOXYCYCLINE HYCLATE 100 MG CAP PO STA (16:07)
[2024-09-14] MEDS: ASPIRIN 81 MG ECTAB PO STA (16:07)
[2024-09-14] MEDS: LEVALBUTEROL 1.25 MG/3 ML NEB NEB STA (16:08)
[2024-09-14] MEDS: HEPARIN 25000 UNIT/500 ML D5W 25,000 UNITS/500 ML BAG IV SCH (16:33)
[2024-09-14] MEDS: Heparin IV Adult Wt-Based Low-Dose *NO* INITIAL Bolus Protocol IV STA (16:34)
[2024-09-14] MEDS ORDERED: MoRPHine SULFATE 2 MG/ML CARP IV PRN (16:58)
[2024-09-14] MEDS ORDERED: MELATONIN 3 MG TAB PO PRN (16:58)
[2024-09-14] MEDS ORDERED: ACETAMINOPHEN 325 MG TAB PO PRN (16:58)
[2024-09-14] MEDS ORDERED: ONDANSETRON INJ 2 MG/ML 2 ML VIAL IV PRN (16:58)
[2024-09-14] MEDS ORDERED: NITROGLYCERIN SL 0.4 MG/TAB TAB SL PRN (16:58)
[2024-09-14] MEDS: INSULIN ASPART PER UNIT CHARGE SC SCH (18:10)
[2024-09-14] MEDS: guaiFENesin 600 MG TABCR PO SCH (19:58)
[2024-09-14] MEDS: ATORVASTATIN 20 MG TAB PO SCH (19:58)
[2024-09-14] MEDS: METOPROLOL SUCC 50MG EXT REL TAB PO SCH (19:59)
[2024-09-14] MEDS: DOXYCYCLINE HYCLATE 100 MG CAP PO SCH (19:59)
[2024-09-14] MEDS: LEVALBUTEROL 1.25 MG/3 ML NEB NEB SCH (20:09)
[2024-09-14] MEDS ORDERED: NON-FORMULARY MEDICATION (Vit C,E-Zn-Coppr-Lutein-Zeaxan [Preservision Areds-2] 250-90-40- PO SCH (21:00)
[2024-09-14] MEDS ORDERED: NON-FORMULARY MEDICATION (Lutein 6 mg tablet) PO SCH (21:00)
[2024-09-14] MEDS: LATANOPROST 0.005% OP SOLN 2.5 ML BTL OPB SCH (21:22)
[2024-09-14] MEDS: ERYTHROMYCIN OP OINT 5 MG/GM 3.5 GM TUBE OPR SCH (21:31)
[2024-09-14 23:36] LABS: ANTI-Xa, UFH(UnfractionatedHep 0.11 IU/ml (0.3-0.7)
[2024-09-15] MEDS: HEPARIN SOD (PORCINE) 1000 UNIT/ML IV ONE ×2 (00:13→08:32)
[2024-09-15 07:34] LABS: Hematocrit (blood only) 40.6 % (42.0-52.0); Mean Corpuscular Hemoglobin 31.2 pg (25.0-34.0); Mean Corpuscular Volume 97.4 fL (80.0-100.0); Mean Platelet Volume 9.7 fL (9.4-12.4); Platelet Count 301 K/uL (130-400); RDW Coefficient of Variation 15.6 % (11.5-14.5); RDW Standard Deviation 55.9 fL (36.4-46.3); Red Blood Count 4.17 M/uL (4.70-6.10); White Blood Count 10.96 K/ul (4.8-10.8)
[2024-09-15 07:50] LABS: BUN Creatinine Ratio 30.7 (10-20); Calcium 9.2 mg/dl (8.6-10.3); Creatinine Clr Calc Pharmacy 41.6 ml/min; Magnesium 2.1 mg/dl (1.7-2.4); Potassium 4.4 mmol/L (3.5-5.1)
[2024-09-15 07:58] LABS: ANTI-Xa, UFH(UnfractionatedHep 0.19 IU/ml (0.3-0.7); Troponin I High Sensitivity 692.7 pg/ml (0-20)
[2024-09-15 08:07] LABS: Thyroid Stimulating Hormone 1.254 uIu/ml (0.300-4.500)
[2024-09-15] MEDS: TAMSULOSIN HCL 0.4 MG CAP PO SCH (08:14)
[2024-09-15] MEDS: CEROVITE ADV FORMULA TAB PO SCH (08:14)
[2024-09-15] MEDS: ASPIRIN 81 MG ECTAB PO SCH (08:14)
[2024-09-15] MEDS: EMPAGLIFLOZIN 10 MG TAB PO SCH (08:15)
[2024-09-15] MEDS: UMECLIDINIUM/VILANTEROL 62.5/25MCG 7 PUFFS/INHALER INH SCH (08:32)
[2024-09-15] MEDS ORDERED: CEROVITE ADV FORMULA TAB PO SCH (09:00)
[2024-09-15] MEDS ORDERED: lisinopril 40 MG TAB PO SCH (09:00)
--- NOTE | 2024-09-15 09:44 | XRay Report ---
XR chest 2V PA/lateral CLINICAL HISTORY: CHF vs pneumonia COMPARISON STUDY: 09/14/2024 FINDINGS: Heart size and pulmonary vasculature are normal. Lungs are mildly hyperexpanded. No consoli dation or pleural effusion seen. No pneumothorax. IMPRESSION: No pneumonia seen. ACT 112: Negative or not required by law. Electronically signed by: Vinod Munoz M.D. 09/15/2024 9:42 AM
--- NOTE | 2024-09-15 10:07 | Cardiology Consultation ---
Date of Consultation September 15, 2024 Assessment & Plan (1) Non-ST elevation (NSTEMI) myocardial infarction: (2) CAD (coronary artery disease): (3) Aortic stenosis: (4) Dyspnea: (5) Elevated troponin: Plan ASSESSMENT/PLAN: 1. NSTEMI: He did not present with acute coronary syndrome and elevated troponins likely due to demand ischemia, likely with underlying CAD. Medical therapy seems appropriate and after discussion with patient/ regarding medical therapy versus invasive measures, he was comfortable with medical therapy. Can continue heparin drip for a total of 48 hours from presentation. Continue statin therapy, aspirin, and beta-jace. 2. CAD: He describes nonobstructive CAD in the early but with LAD wall motion abnormality, likely has more advanced CAD at this point. He seems to be asymptomatic in that regard as his symptoms on presentation seem more in line with viral illness or COPD exacerbation. Medical therapy as above. 3. Shortness of breath: He appears euvolemic. He takes Lasix at home and would resume outpatient Lasix likely tomorrow, as well as chronic dose of spironolactone if no contraindication. Presentation more consistent with viral illness or COPD exacerbation, although improved after some diuresis initially and net negative fluid balance. 4. Aortic and mitral stenosis: Nonsevere. Can be followed in the outpatient setting. 5. Disposition: Patient care communicated with primary hospitalist, Dr. Rey. Cardiology will sign off at this time. Dr. Sebastian, his primary nuclear equipment research engineer, is on-call this evening and through the weekend. Please contact Dr. Sebastian with any questions or concerns. Follow-up with Dr. Sebastian on discharge. Thank you for allowing me to participate in the care of your patient. Please call for any other questions or concerns. Sincerely, John Lopez M.D. History of Present Illness Reason for Consultation: "possible ACS" Requesting Physician: Tao Rey MD Attending Physician: Tao Rey MD History of Present Illness Mr. Roth is a very pleasant 88-year-old gentleman with a history significant for CAD, aortic stenosis, PVCs, hypertension, dyslipidemia, COPD, lung cancer (XRT right lung 2023), and type 2 diabetes. His primary nuclear equipment research engineer is Dr. Sebastian. He was hospitalized on 09/14/2024 after presenting with cough, chills, poor appetite, dyspnea on exertion, and congestion. For the past 5 days, he has had cough, sometimes with clear sputum and worsening dyspnea on exertion. He denies orthopnea other than some shortness of breath when he first gets into bed after exerting himself. He denies edema, chest pain, syncope, near syncope. He has had some episodes of diaphoresis and chills but denies documented fevers. In general, his symptoms have improved since admission. In the ER, he was noted to have elevated high-sensitivity troponin of 398 and a has since trended upward to 692. He denies any chest discomfort, palpitations, melena, hematochezia, hematuria. He recalls having a cardiac catheterization in the early in [place] and describes mild nonobstructive CAD. Review of systems: As above. Family history: Mother had AR in her 40s. Social history: Quit smoking in 2001. No alcohol or drug abuse. Lives at home with his and stepson. Has 3 sons from a prior relationship. He was accompanied by his . Allergies Allergy/AdvReac Type Severity Reaction Status Date / Time No Known Allergies Allergy Verified 07/27/24 13:11 Home Medications Medication Instructions Recorded Confirmed Type aspirin 81 mg tablet 81 mg PO HS 03/10/19 09/14/24 History lutein 6 mg tablet 6 mg PO HS 03/10/19 09/14/24 History atorvastatin 40 mg tablet 20 mg PO HS 07/30/20 09/14/24 History lisinopril 40 mg tablet 40 mg PO QAM 07/30/20 09/14/24 History multivitamin,bz-vobl-Wh-FA-min 1 tab PO QAM 07/30/20 09/14/24 History tamsulosin 0.4 mg capsule 0.4 mg PO DAILY 07/30/20 09/14/24 History metoprolol succinate 50 mg 50 mg PO QPM 08/14/20 09/14/24 History tablet,extended release 24 hr amlodipine 10 mg tablet 10 mg PO QAM 02/13/21 09/14/24 History dorzolamide 2 %-timolol 0.5 % (PF) 1 drp OPB BID 06/25/22 09/14/24 History eye drops erythromycin 5 mg/gram (0.5 %) eye 1 applic OPR TID 06/25/22 09/14/24 History ointment hard/soft/gas permeable prods 06/25/22 09/14/24 History (Systane Contacts eye drops) latanoprost 0.005 % eye drops 1 drp OPB HS 06/25/22 09/14/24 History loteprednol etabonate 0.5 % eye 1 drp OPR DAILY 06/25/22 09/14/24 History drops,suspension spironolactone 50 mg tablet 50 mg PO QAM 07/27/23 09/14/24 History tiotropium 2.5 mcg-olodaterol 2.5 2 puff inhalation QAM 05/08/24 09/14/24 History mcg/actuation mist for inhalation (Stiolto Respimat) vit C 250 mg-vit E 90 mg-zinc 40 1 tab PO BID 05/08/24 09/14/24 History mg-copper 1 [id number] capsule (PreserVision AREDS-2) empagliflozin 10 mg tablet 10 mg PO QAM 07/27/24 09/14/24 History (Jardiance) furosemide 20 mg tablet 20 mg PO QAM 07/27/24 09/14/24 History glipizide 5 mg tablet 7.5 mg PO QPM 09/14/24 09/14/24 History glipizide 5 mg tablet 10 mg PO QAM 09/14/24 09/14/24 History Problem List (Updated 09/15/24 @ 19:35 by Steve Lopez MD) Non-ST elevation (NSTEMI) myocardial infarction Abnormal chest x-ray COPD with exacerbation Elevated troponin (Acute) Generalized weakness (Acute) Dyspnea (Acute) Abnormal CT of the chest Thyroid nodule Weak urinary stream Cerumen impaction Anxiety about treatment BPH w urinary obs/LUTS 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 50% Gout Macular degeneration History of gout History of Holter monitoring (11/2023) pt doesn't know result details, reports he was told it was nothing to worry about. Legally blind in left eye, as defined in [place] History of skin cancer removal ,left scalp was most recent procedure for skin cancer , august 2023. Lung cancer (12/2023) dx 12/2023 - radiation feb 06 - feb 11 2024. scan ? type Apr 2024 [facility]: pt doesn't know results at current, upcoming appointment addy cancer may 24 2024. Left hip pain History of colon polyps Right ear impacted cerumen Hip tendinitis Degenerative arthritis of knee, bilateral Left leg pain Glaucoma Internal hemorrhoids Legally blind in right eye PVC (premature ventricular contraction) Sinus bradycardia Tubular adenoma of colon (~06/03/15) repeat in 5 years History of pleural effusion Tubular adenoma of colon pt not sure details of findings with most recent colonoscopy 11/2023. History of sinus bradycardia Pulmonary nodule following with Dr. Anderson Legally blind in right eye, as defined in [place] completely blind right eye per pt Hypertension Hypercholesteremia Macular degeneration Dyspnea on exertion has improved some Chronic bronchitis History of carotid stenosis pt states "I was told it was normal for my age" CAD (coronary artery disease) pt states he does not follow with a nuclear equipment research engineer History of anemia Allergic rhinitis with postnasal drip COPD (chronic obstructive pulmonary disease) uses inhaler daily Chronic kidney disease (CKD) follows with [facility]ph Diabetes mellitus NIDDM Cardiac murmur echo 11/24/22 Emphysema lung History of Mohs micrographic surgery for skin cancer (~06/09/23) skin cancer removal done by Dr. Pennington at [facility] BPH (benign prostatic hyperplasia) History of kidney stones History of COVID-19 (~04/10/20) not admitted, resolved Surgical History History of carpal tunnel surgery of right wrist (02/2024) History of lung biopsy CT-guided biopsy 01/05/24 Hx of eye surgery Rt eye x 3, corneal implant, stent and detached retina repair Hx of colonoscopy with polypectomy Hx of vasectomy History of squamous cell carcinoma excision No chemo/SRT History of tooth extraction all upper teeth removed History of bilateral cataract extraction (~1979) History of cardiac cath "early "--no stents done in [place] Family History (Updated 09/14/24 @ 19:37 by Tao Rey MD) Father , age 42 Colon cancer Mother , age 81; had multiple MIs Diabetes Heart disease Stroke Family history of diabetes mellitus Myocardial infarction Aunt Diabetes Brother , 75 Fungal meningitis Other No family history of adverse response to anesthesia Denies family history of Ovarian cancer Prostate cancer Breast cancer Social History (Updated 09/14/24 @ 19:37 by Tao Rey MD) Smoking Status: Former smoker Tobacco Type: Cigarettes, Pipe and Cigars Age Started Using Tobacco: 17; Age Quit Using Tobacco: 66; packs per day: 1.5; Second Hand Exposure: No; Do You Dip or Chew Tobacco: No; Hx Alcohol Use: Yes Alcohol type: beer Alcohol Intake Frequency: 2-4 x/Month Hx Substance Use: No Preferred Language: Citizen Of [place] Communication Ability: Effective Visual Impairment: No Limitations Hearing Ability: Use of Hearing Aid Cellars Supervisor Required: No Beliefs That Will Affect Care: None marital status: marital status details: twice Current Living Situation: Spouse Current Living Situation Comment: and 's son current occupational status: retired 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 [employer] How many Children do You have: 3 How many Children do You have Comment: 3 sons Other Information That Helps Us Care for You: No Feels Safe at Home: No Is there a partner from a previous relationship who is making you feel unsafe now?: No Any Concerns about Your Family Situation: No Would You Like to Speak to Someone About Your Situation: No Safety Concerns: Feels Safe At This Time Childhood Exposure to Second-Hand Smoke: No Diet: regular Diet Comment: no added salt caffeine: Yes Dental Care, Regularly: Yes Physical Activity Frequency: Does not Exercise Seatbelt Use: always Sunscreen Use: No Assistive Devices: Crutches and Walker Physical Exam Physical Exam: Gen.: No acute distress. Alert. HEENT: Anicteric sclera. Neck: No JVD. No bruits. Normal carotid upstrokes bilaterally. Cardiac: Regular. Distant heart sounds. 1/6 systolic ejection murmur. Pulmonary: Decreased breath sounds bilaterally, but otherwise clear to auscultation bilaterally without wheezes, rales, or rhonchi. Abdomen: Soft, nontender, nondistended, with normoactive bowel sounds. No bruits noted. Extremities: 2+ radial pulses bilaterally. 2+ posterior tibialis pulses bilaterally. No edema or cyanosis. Results & Data Vital Signs (Past 12 Hours) Vital Signs Temp Pulse Pulse Resp BP BP Pulse Ox 09/15/24 09:00 77 09/15/24 09:00 09/15/24 07:52 36.8 C 84 22 137/54 L 93 09/15/24 07:15 76 16 93 09/15/24 02:29 37.0 C 87 18 155/66 H 93 09/14/24 23:33 37.8 C H 75 18 131/53 L 92 O2 Del Method 09/15/24 09:00 09/15/24 09:00 Room Air 09/15/24 07:52 Room Air 09/15/24 07:15 Room Air 09/15/24 02:29 Room Air 09/14/24 23:33 Room Air Intake & Output 09/13/24 09/14/24 09/15/24 09/16/24 06:59 06:59 06:59 06:59 Intake Total 244.333 / 410.700 716.784 / 716.784 Output Total 1850 / 1850 600 / 600 Balance -1605.667 / -1439.300 116.784 / 116.784 Weight 182 lb 8.684 oz Laboratory Results Laboratory Results - last 24 hr 09/14/24 09/14/24 09/14/24 11:46 11:52 13:13 WBC 12.27 H RBC 4.53 L Hgb 14.1 Hct 44.6 MCV 98.5 MCH 31.1 MCHC 31.6 L RDW Std Deviation 57.0 H RDW Coeff of Juan 15.7 H Plt Count 335 MPV 10.0 Immature Gran % (Auto) 1.1 Neut % (Auto) 81.7 Lymph % (Auto) 8.9 Mitchell % (Auto) 7.3 Eos % (Auto) 0.4 Baso % (Auto) 0.6 Neut # (Auto) 10.02 H Lymph # (Auto) 1.09 L Mitchell # (Auto) 0.90 H Eos # (Auto) 0.05 Baso # (Auto) 0.07 Immature Gran # (Auto) 0.14 PT 11.4 INR 1.1 APTT 32 H PTT Ratio 1.2 Heparin Anti-Xa, Unfract Sodium 136 Potassium 5.0 Chloride 99 Carbon Dioxide 31 Anion Gap 6 BUN 45 H Creatinine 1.52 H Est Cr Clr Drug Dosing 38.3 eGFR 44.35 BUN/Creatinine Ratio 29.6 H Glucose 221 H POC Glucose Calcium 9.9 Magnesium Total Bilirubin 0.8 AST 29 ALT 35 Alkaline Phosphatase 91 Troponin I High Sens 398.9 H* B-Natriuretic Peptide 814 H Total Protein 7.6 Albumin 4.0 Globulin 3.6 Albumin/Globulin Ratio 1.1 TSH SARS-CoV-2 (PCR) NEGATIVE Influenza Type A (PCR) Negative Influenza Type B (PCR) Negative RSV (RT-PCR) Negative 09/14/24 09/14/24 09/14/24 14:07 16:58 17:42 WBC RBC Hgb Hct MCV MCH MCHC RDW Std Deviation RDW Coeff of Juan Plt Count MPV Immature Gran % (Auto) Neut % (Auto) Lymph % (Auto) Mitchell % (Auto) Eos % (Auto) Baso % (Auto) Neut # (Auto) Lymph # (Auto) Mitchell # (Auto) Eos # (Auto) Baso # (Auto) Immature Gran # (Auto) PT INR APTT PTT Ratio Heparin Anti-Xa, Unfract Sodium Potassium Chloride Carbon Dioxide Anion Gap BUN Creatinine Est Cr Clr Drug Dosing eGFR BUN/Creatinine Ratio Glucose POC Glucose 151 H Calcium Magnesium Total Bilirubin AST ALT Alkaline Phosphatase Troponin I High Sens 449.4 H* 570.1 H* D B-Natriuretic Peptide Total Protein Albumin Globulin Albumin/Globulin Ratio TSH SARS-CoV-2 (PCR) Influenza Type A (PCR) Influenza Type B (PCR) RSV (RT-PCR) 09/14/24 09/14/24 09/15/24 20:10 22:26 07:12 WBC RBC Hgb Hct MCV MCH MCHC RDW Std Deviation RDW Coeff of Juan Plt Count MPV Immature Gran % (Auto) Neut % (Auto) Lymph % (Auto) Mitchell % (Auto) Eos % (Auto) Baso % (Auto) Neut # (Auto) Lymph # (Auto) Mitchell # (Auto) Eos # (Auto) Baso # (Auto) Immature Gran # (Auto) PT INR APTT PTT Ratio Heparin Anti-Xa, Unfract 0.11 L Sodium Potassium Chloride Carbon Dioxide Anion Gap BUN Creatinine Est Cr Clr Drug Dosing eGFR BUN/Creatinine Ratio Glucose POC Glucose 129 H 168 H Calcium Magnesium Total Bilirubin AST ALT Alkaline Phosphatase Troponin I High Sens B-Natriuretic Peptide Total Protein Albumin Globulin Albumin/Globulin Ratio TSH SARS-CoV-2 (PCR) Influenza Type A (PCR) Influenza Type B (PCR) RSV (RT-PCR) 09/15/24 07:17 WBC 10.96 H RBC 4.17 L Hgb 13.0 L Hct 40.6 L MCV 97.4 MCH 31.2 MCHC 32.0 RDW Std Deviation 55.9 H RDW Coeff of Juan 15.6 H Plt Count 301 MPV 9.7 Immature Gran % (Auto) Neut % (Auto) Lymph % (Auto) Mitchell % (Auto) Eos % (Auto) Baso % (Auto) Neut # (Auto) Lymph # (Auto) Mitchell # (Auto) Eos # (Auto) Baso # (Auto) Immature Gran # (Auto) PT INR APTT PTT Ratio Heparin Anti-Xa, Unfract 0.19 L Sodium 136 Potassium 4.4 Chloride 99 Carbon Dioxide 29 Anion Gap 8 BUN 43 H Creatinine 1.40 Est Cr Clr Drug Dosing 41.6 eGFR 48.95 BUN/Creatinine Ratio 30.7 H Glucose 188 H POC Glucose Calcium 9.2 Magnesium 2.1 Total Bilirubin AST ALT Alkaline Phosphatase Troponin I High Sens 692.7 H* D B-Natriuretic Peptide Total Protein Albumin Globulin Albumin/Globulin Ratio TSH 1.254 SARS-CoV-2 (PCR) Influenza Type A (PCR) Influenza Type B (PCR) RSV (RT-PCR) Diagnostic Findings ECGs personally reviewed: ECG 09/14/2024 at 11:48 AM: Sinus with PVCs. RBBB. ECG 09/14/2024 at 1602: Sinus rhythm 71 bpm. RBBB. ECG 09/15/2024 at 8:58 AM: Sinus 77 bpm. RBBB. PACs. Anterolateral T wave inversion. Echo 09/14/2024: Normal LV size. EF 55-60%. Apical hypokinesis. Mild LVH. Mild aortic stenosis. Mild mitral stenosis. Mild MR. Normal RVSP. Compared to 02/24/2024 study, apex is now hypokinetic. History and physical report reviewed. Labs reviewed: Elevated high-sensitivity troponin trending upward, up to 692. E levated BNP. Mildly abnormal but stable renal function. Normal potassium. Normal transaminase levels. Normal TSH. Mild anemia. Mild leukocytosis. Chest x-ray 09/15/2024: No pneumonia per radiology. Telemetry personally reviewed: Sinus rhythm. No arrhythmia. Medications Administered Current Inpatient Medications Acetaminophen (Acetaminophen 325 Mg Tab) 650 mg PO Q4H PRN PRN Reason: Pain or Fever Stop: 10/14/24 16:57 Aspirin (Aspirin 81 Mg Ectab) 81 mg PO QAM [facility] Stop: 10/15/24 08:59 Last Admin: 09/15/24 08:14 Dose: 81 mg Atorvastatin Calcium (Atorvastatin 20 Mg Tab) 20 mg PO [facility] Stop: 10/14/24 20:59 Last Admin: 09/14/24 19:58 Dose: 20 mg Doxycycline Hyclate (Doxycycline Hyclate 100 Mg Cap) 100 mg PO BID [facility] Stop: 09/19/24 20:59 Last Admin: 09/15/24 08:14 Dose: 100 mg Empagliflozin (Empagliflozin 10 Mg Tab) 10 mg PO QAM [facility] Stop: 10/15/24 08:59 Last Admin: 09/15/24 08:15 Dose: 10 mg Erythromycin (Erythromycin Op Oint 5 Mg/Gm 3.5 Gm Tube) 1 appln OPR TID [facility] Stop: 09/24/24 20:59 Last Admin: 09/15/24 08:13 Dose: 1 appln Guaifenesin (Guaifenesin 600 Mg Tabcr) 1,200 mg PO Q12 [facility] Stop: 10/14/24 20:59 Last Admin: 09/15/24 08:14 Dose: 1,200 mg Heparin Sodium/Dextrose (Heparin 80035 Unit/500 Ml D5w) 25,000 units in 500 mls @ 26 mls/hr IV .[id number] [facility]; Protocol Stop: 10/14/24 15:44 Last Titration: 09/15/24 08:15 Dose: 1,300 units/hr, 26 mls/hr Insulin Aspart (Insulin Aspart Per Unit Charge) 0 units SC ACHS [facility] Stop: 10/14/24 16:57 Last Admin: 09/15/24 08:12 Dose: 2 units Latanoprost (Latanoprost 0.005% Op Soln 2.5 Ml Btl) 1 drops OPB HS [facility] Stop: 10/14/24 20:59 Last Admin: 09/14/24 21:22 Dose: 1 drops Levalbuterol HCl (Levalbuterol 1.25 Mg/3 Ml Neb) 1.25 mg NEB TIDR [facility] Stop: 10/14/24 18:59 Last Admin: 09/15/24 07:15 Dose: 1.25 mg Lisinopril (Lisinopril 40 Mg Tab) 40 mg PO QAM [facility] Stop: 10/15/24 08:59 Melatonin (Melatonin 3 Mg Tab) 3 mg PO HS PRN PRN Reason: Sleep Stop: 10/14/24 16:57 Metoprolol Succinate (Metoprolol Succ 50mg Ext Rel Tab) 50 mg PO QPM [facility] Stop: 10/14/24 20:59 Last Admin: 09/14/24 19:59 Dose: 50 mg Miscellaneous (Dorzolamide-Timolol (Pf) 2-0.5 % Drops~Order Awaiting Action) 1 each N/A QS [facility] Stop: 10/15/24 00:00 Last Admin: 09/15/24 08:13 Dose: Not Given Miscellaneous (Hard/Soft/Gas Permeable Prods [Systane Contacts] Drops~Order Awaiting Action) 1 each N/A QS [facility] Stop: 10/15/24 00:00 Last Admin: 09/15/24 08:13 Dose: Not Given Miscellaneous (Loteprednol Etabonate 0.5 % Drops,Suspension~Order Awaiting Action) 1 each N/A QS [facility] Stop: 10/15/24 00:00 Last Admin: 09/15/24 08:13 Dose: Not Given Morphine Sulfate (Morphine Sulfate 2 Mg/Ml Carp) 2 mg IV Q30M PRN PRN Reason: Chest Pain Stop: 09/28/24 16:57 Multivitamins/Minerals (Cerovite Adv Formula Tab) 1 tab PO BID [facility] Stop: 10/15/24 08:59 Last Admin: 09/15/24 08:14 Dose: 1 tab Nitroglycerin (Nitroglycerin Sl 0.4 Mg/Tab Tab) 0.4 mg SL Q5M PRN PRN Reason: Chest Pain Stop: 10/14/24 16:57 Ondansetron HCl (Ondansetron Inj 2 Mg/Ml 2 Ml Vial) 4 mg IV Q6H PRN PRN Reason: Nausea Stop: 10/14/24 16:57 Tamsulosin HCl (Tamsulosin Hcl 0.4 Mg Cap) 0.4 mg PO DAILY [facility] Stop: 10/15/24 08:59 Last Admin: 09/15/24 08:14 Dose: 0.4 mg Umeclidinium/Vilanterol (Umeclidinium/Vilanterol 62.5/25mcg 7 Puffs/Inhaler) 1 puffs INH QAM [facility] Stop: 10/15/24 08:59 Last Admin: 09/15/24 08:32 Dose: 1 puffs PG Care Time/CCT Total # of Minutes Spent Total Time Spent with Patient: Total time spent is greater than 50% in coordination of care (as documented) at patient's floor/unit and/or counseling patient: Coding Level of Care Code 55802 INT INP/OBS CARE 3/75MIN Diagnoses Non-ST elevation (NSTEMI) myocardial infarction I21.4 CAD (coronary artery disease) I25.10 Aortic stenosis I35.0 Dyspnea R06.00 Elevated troponin R79.89
[2024-09-15 15:26] LABS: ANTI-Xa, UFH(UnfractionatedHep 0.32 IU/ml (0.3-0.7)
--- NOTE | 2024-09-15 17:59 | Hospitalist Progress Note ---
Date of Service September 15, 2024 Assessment & Plan (1) COPD with exacerbation: (2) Abnormal chest x-ray: (3) Elevated troponin: (4) CAD (coronary artery disease): (5) Hypercholesterolemia: (6) Hypertension: (7) Diabetes mellitus: (8) Adenocarcinoma of lower lobe of right lung: (9) Aortic stenosis: (10) BPH w urinary obs/LUTS: (11) Chronic kidney disease (CKD): Plan 88yo male with history of T2DM, HTN, BPH, CKD stage 3b, hyperlipidemia, presumed CAD, prior lung cancer (adenocarcinoma) of the right lung s/p XRT 2023, blindness of right eye, prior tobacco use, aortic stenosis, and COPD who presents from home with his with respiratory symptoms starting on Wednesday of this week. He has had cough, congestion, sputum production, dyspnea on exertion (worse than his typical baseline chronic CANALES), chills, no appetite, fatigue/weakness, and sore throat. Denies any chest pain or chest tightness this week. #COPD with exacerbation - -clinical history most c/w respiratory illness beginning on Wednesday of this week -COVID/flu/RSV negative; could easily have another viral process that triggered the illness -cont scheduled Xopenex nebs TID -mucinex BID -cont umeclidinium/vilanterol inhaler daily -flutter valve & incentive spirometer -defer on systemic steroids in light of cardiac disease but consider an inhaled steroid -cont doxycycline 100mg BID; sputum cx sent/pending -chest x-ray today, 2-view, w/o discrete pneumonia #abnormal chest x-ray - -admit cxr with interstitial infiltrates -repeat cxr today without any infiltrates -could have had mild pulm edema at admission that has resolved -no evidence of pneumonia today #positive troponin - -myocardial demand ischemia in the setting of his respiratory illness felt most likely -he had an urgent echo in the ER due to the +troponin and this showed a new wall motion abnormality in the LV apex; although ACS is possible it is felt unlikely as stated by cardiology -2023 echo showed normal LV wall motion -he has presumed CAD based on prior records (2023 cardiology notes suggest presumed CAD) -same cardiology notes reference that the patient had a left heart cath in the and was told there was some CAD at that time -in the small chance that this was an ACS he will complete 48 hours of low-dose heparin infusion which will conclude tomorrow afternoon -cont asa 81mg, cont his beta jace, cont his statin -trend the troponin until the peak is seen; thus far it has not peaked thus check another trop tomorrow AM -appreciate Dr Lopez's consult from [facility] Cardiology; agree with recs for medical management of presumed, underlying CAD #question of acute HFpEF - -patient with multiple pulmonary symptoms, elevated BNP, and abnormal echo as above -s/p lasix in the ER -had no significant UOP with such and today's cxr without edema -resume lasix/aldactone tomorrow -cont Jardiance -cont meto succ -hold lisinopril for now; resume when able #T2DM - -hold PO agents except Jardiance -cont novolog SSI -BSGs ac/hs -DM diet #BPH - -cont flomax #HTN - -cont meto succ -cont flomax -cont to hold amlodipine, hold lisinopril; resume 1 or both as needed #CKD stage 3b - -Creatinine today is stable at 1.4 -baseline Cr is 1.5 -BMP am #aortic stenosis - -mild -no apparent symptoms from such #glaucoma - -cont usual eye drops #DVT proph - -low-dose heparin drip as above extensively updated at bedside once again obtain PT/OT evals due to weakness progressing Admission and Anticipated Discharge Date Admission Date: September 14, 2024 Subjective feels weak and fatigued appetite wnl however cough is most prominent symptom - productive of yellow (and green) sputum overall his breathing is modestly improved vs yesterday no chest pain or tightness tele overnight wnl Review of Systems Review of Systems: gen - no fevers or chills cv - no orthopnea pulm - no wheezing today GI - no N/V Physical Exam Physical Exam: gen - laying in bed, looks better today, not coughing as much mouth - MMM; no lesions neck - no JVD heart - RRR, s1 s2, 2/6 systolic murmur RUSB lungs - minimal b/l basilar rales; no wheezes today; no increased work of breathing abd - soft NT ND BS+; no HSM ext - no edema, pulses b/l feet 2+ psych - awake, alert, oriented Results & Data Results & Data Vital Signs (Past 12 Hours) Vital Signs Temp Pulse Pulse Resp BP Pulse Ox O2 Del Method 09/15/24 15:22 36.7 C 74 20 132/57 L 94 Room Air 09/15/24 14:26 72 09/15/24 12:39 80 16 91 Room Air 09/15/24 11:22 36.8 C 72 18 133/67 93 Room Air 09/15/24 09:00 77 09/15/24 09:00 Room Air 09/15/24 07:52 36.8 C 84 22 137/54 L 93 Room Air 09/15/24 07:15 76 16 93 Room Air Laboratory Results Laboratory Results - last 24 hr 09/15/24 09/15/24 09/15/24 07:12 07:17 11:01 WBC 10.96 H RBC 4.17 L Hgb 13.0 L Hct 40.6 L MCV 97.4 MCH 31.2 MCHC 32.0 RDW Std Deviation 55.9 H RDW Coeff of Juan 15.6 H Plt Count 301 MPV 9.7 Heparin Anti-Xa, Unfract 0.19 L Sodium 136 Potassium 4.4 Chloride 99 Carbon Dioxide 29 Anion Gap 8 BUN 43 H Creatinine 1.40 Est Cr Clr Drug Dosing 41.6 eGFR 48.95 BUN/Creatinine Ratio 30.7 H Glucose 188 H POC Glucose 168 H 226 H Calcium 9.2 Magnesium 2.1 Troponin I High Sens 692.7 H* D TSH 1.254 Diagnostic Findings Chest X-Ray 09/15/24 08:39 XR chest 2V PA/lateral CLINICAL HISTORY: CHF vs pneumonia COMPARISON STUDY: 09/14/2024 FINDINGS: Heart size and pulmonary vasculature are normal. Lungs are mildly hyperexpanded. No consolidation or pleural effusion seen. No pneumothorax. IMPRESSION: No pneumonia seen. ACT 112: Negative or not required by law. Electronically signed by: Vinod Munoz M.D. 09/15/2024 9:42 AM PG Care Time/CCT Total # of Minutes Spent Total Time Spent with Patient: Total time spent is greater than 50% in coordination of care (as documented) at patient's floor/unit and/or counseling patient: Coding Level of Care Code 43383 SUB INP/OBS CARE 2/35MIN Diagnoses COPD with exacerbation J44.1 Abnormal chest x-ray R93.89 Elevated troponin R79.89 CAD (coronary artery disease) I25.10 Hypercholesterolemia E78.00 Hypertension I10 Diabetes mellitus E11.9 Adenocarcinoma of lower lobe of right lung C34.31 Aortic stenosis I35.0 BPH w urinary obs/LUTS N40.1; N13.8 Chronic kidney disease (CKD) N18.9
[2024-09-15] MEDS: DORZOLAMIDE/TIMOLOL 22.3/6.8MG/ML 10 ML BTL OP SCH (21:22)
--- NOTE | 2024-09-15 22:06 | Electrocardiogram Report ---
Test Reason : Blood Pressure : */* mmHG Vent. Rate : 82 BPM Atrial Rate : 82 BPM P-R Int : 154 ms QRS Dur : 128 ms QT Int : 414 ms P-R-T Axes : 92 -72 53 degrees QTcB Int : 483 ms Poor data quality, interpretation may be adversely affected Sinus rhythm with Premature ventricular complexes or Fusion complexes Left axis deviation Right bundle branch block Abnormal ECG No previous ECGs available Confirmed by Steve Lopez ([id number]) on 09/15/2024 10:06:10 PM Referred By: REFERRED SELF Confirmed By: Steve Lopez
--- NOTE | 2024-09-15 22:07 | Electrocardiogram Report ---
Test Reason : Blood Pressure : */* mmHG Vent. Rate : 71 BPM Atrial Rate : 71 BPM P-R Int : 160 ms QRS Dur : 122 ms QT Int : 430 ms P-R-T Axes : 71 -69 18 degrees QTcB Int : 467 ms Normal sinus rhythm Left axis deviation Right bundle branch block Abnormal ECG When compared with ECG of 14-Sep-2024 11:48, Premature ventricular complexes are no longer present Confirmed by Steve Lopez ([id number]) on 09/15/2024 10:06:59 PM Referred By: REFERRED SELF Confirmed By: Steve Lopez
--- NOTE | 2024-09-15 22:07 | Electrocardiogram Report ---
Test Reason : Blood Pressure : */* mmHG Vent. Rate : 77 BPM Atrial Rate : 77 BPM P-R Int : 160 ms QRS Dur : 124 ms QT Int : 436 ms P-R-T Axes : 77 -74 71 degrees QTcB Int : 493 ms Sinus rhythm Premature atrial complexes Left axis deviation Right bundle branch block Septal infarct (cited on or before 14-Sep-2024) Inferior infarct , age undetermined T wave abnormality, consider anterolateral ischemia Abnormal ECG When compared with ECG of 14-Sep-2024 16:02, Inferior infarct is now Present T wave inversion now evident in Anterolateral leads Confirmed by Steve Lopez ([id number] on 09/15/2024 10:07:41 PM Referred By: REFERRED SELF Confirmed By: Steve Lopez
[2024-09-16 06:30] LABS: BUN Creatinine Ratio 29.1 (10-20); Calcium 9.4 mg/dl (8.6-10.3); Creatinine Clr Calc Pharmacy 41.3 ml/min; Potassium 4.4 mmol/L (3.5-5.1)
[2024-09-16 06:40] LABS: Troponin I High Sensitivity 369.4 pg/ml (0-20)
[2024-09-16 07:35] LABS: ANTI-Xa, UFH(UnfractionatedHep 0.22 IU/ml (0.3-0.7)
[2024-09-16] MEDS: FUROSEMIDE 20 MG TAB PO SCH (08:21)
[2024-09-16] MEDS: SPIRONOLACTONE 25 MG TAB PO SCH (08:21)
[2024-09-16] MEDS: LOTEPREDNOL ETABONATE 5 ML OPH SUSP OP SCH ×2 (08:50→13:22)
[2024-09-16] MEDS: Nursing to Pharmacy Communication SCH (10:09)
[2024-09-16] MEDS: AMOXICILLIN/CLAVULANATE 875 MG TAB PO SCH (11:22)
[2024-09-16] MEDS ORDERED: Nursing to Pharmacy Communication SCH (12:30)
--- NOTE | 2024-09-16 12:54 | Hospitalist Progress Note ---
Date of Service September 16, 2024 Assessment & Plan (1) COPD with exacerbation: (2) Abnormal chest x-ray: (3) Elevated troponin: (4) CAD (coronary artery disease): (5) Hypercholesterolemia: (6) Hypertension: (7) Diabetes mellitus: (8) Adenocarcinoma of lower lobe of right lung: (9) Aortic stenosis: (10) BPH w urinary obs/LUTS: (11) Chronic kidney disease (CKD): Plan 88yo male with history of T2DM, HTN, BPH, CKD stage 3b, hyperlipidemia, presumed CAD, prior lung cancer (adenocarcinoma) of the right lung s/p XRT 2023, blindness of right eye, prior tobacco use, aortic stenosis, and COPD who presents from home with his with respiratory symptoms starting on Wednesday of this week. He has had cough, congestion, sputum production, dyspnea on exertion (worse than his typical baseline chronic CANALES), chills, no appetite, fatigue/weakness, and sore throat. Denies any chest pain or chest tightness this week. #COPD with exacerbation - -clinical history most c/w respiratory illness beginning on Wednesday of this week -COVID/flu/RSV negative; could easily have another viral process that triggered the illness -then developed purulent sputum production; sputum cx with H Flu -stop doxy; change to augmentin BID; sensi's of sputum cx pending -cont scheduled Xopenex nebs TID -mucinex BID -cont umeclidinium/vilanterol inhaler daily -add budesonide nebs BID but defer on systemic steroids for now in light of suspicion of possible active heart disease -flutter valve & incentive spirometer -of note - cxr x 2 this admission without discrete pneumonia #abnormal chest x-ray - -admit cxr with interstitial infiltrates -repeat cxr without any infiltrates -could have had mild pulm edema at admission that resolved s/p IV lasix on hospital day #1 -no evidence of pneumonia on repeat films #positive troponin - -myocardial demand ischemia in the setting of his respiratory illness felt most likely -he had an urgent echo in the ER due to the +troponin and this showed a new wall motion abnormality in the LV apex; although ACS is possible it is felt unlikely as stated by cardiology -2023 echo showed normal LV wall motion -he has presumed CAD based on prior records (2023 cardiology notes suggest presumed CAD) -same cardiology notes reference that the patient had a left heart cath in the and was told there was some CAD at that time -in the small chance that this was an ACS he will complete 48 hours of low-dose heparin infusion which will conclude this afternoon -cont asa 81mg, cont his beta jace, cont his statin -troponin peak was 692; today's value has trended down -appreciate Dr Lopez's consult from [facility] [place] Cardiology; agree with recs for [facility] management of presumed, underlying CAD #question of acute HFpEF - -patient with multiple pulmonary symptoms, elevated BNP, and abnormal echo as above -s/p lasix in the ER -had no significant UOP with such but he felt mildly better (hard to say if it was bronchodilators given or the lasix given that helped him feel better) -resumed lasix/aldactone -cont Jardiance -cont meto succ -hold lisinopril for now; resume perhaps tomorrow if BPs are stable and creatinine is stable on labs #T2DM - -hold PO agents except Jardiance -cont novolog SSI -BSGs ac/hs -DM diet #BPH - -cont flomax #HTN - -cont meto succ -cont flomax -cont to hold amlodipine, hold lisinopril; resume 1 or both as needed #CKD stage 3b - -Creatinine today is stable at 1.4 once again -baseline Cr is 1.5 -BMP am #aortic stenosis - -mild -no apparent symptoms from such #glaucoma - -cont usual eye drops #DVT proph - -low-dose heparin drip as above and son extensively updated at bedside once again obtain PT/OT evals due to weakness - both are pending progressing nicely Admission and Anticipated Discharge Date Admission Date: September 14, 2024 Subjective tele stable overnight no chest pain or chest tightness main complaint is cough - which is slowly improving he overall feels better in comparison to admission denies dyspnea at rest ?wheezing earlier today per staff still mild CANALES when walking in the room son & at bedside - questions & care plan discussed tolerating heparin drip without bleeding or other issue Review of Systems Review of Systems: gen - still low-grade fevers at times but no chills cv - no chest pain, no orthopnea pulm - cough/congestion/sputum GI - no N/V; no stool in several days Physical Exam Physical Exam: gen - sitting up in bed, looks ok today, no distress mouth - MMM; no lesions neck - no JVD heart - RRR, s1 s2, 2/6 systolic murmur RUSB lungs - b/l basilar rales resolved; no wheezes today; airation has improved; no increased work of breathing abd - soft NT ND BS+; no HSM ext - no edema, pulses b/l feet 2+ Results & Data Results & Data Vital Signs (Past 12 Hours) Vital Signs Temp Pulse Resp BP Pulse Ox O2 Del Method 09/16/24 11:30 36.5 C 65 18 140/75 09/16/24 09:00 Room Air 09/16/24 07:30 37.7 C H 77 18 151/69 H 09/16/24 07:16 72 18 92 Room Air 09/16/24 04:28 36.8 C 70 18 158/62 H 92 Room Air Laboratory Results Laboratory Results - last 24 hr 09/15/24 09/15/24 09/15/24 13:45 16:30 21:48 Heparin Anti-Xa, Unfract 0.32 Sodium Potassium Chloride Carbon Dioxide Anion Gap BUN Creatinine Est Cr Clr Drug Dosing eGFR BUN/Creatinine Ratio Glucose POC Glucose 220 H 126 H Calcium Troponin I High Sens 09/16/24 09/16/24 09/16/24 05:39 06:43 07:21 Heparin Anti-Xa, Unfract 0.22 L Sodium 136 Potassium 4.4 Chloride 100 Carbon Dioxide 31 Anion Gap 5 BUN 41 H Creatinine 1.41 H Est Cr Clr Drug Dosing 41.3 eGFR 48.53 BUN/Creatinine Ratio 29.1 H Glucose 168 H POC Glucose 151 H Calcium 9.4 Troponin I High Sens 369.4 H* D 09/16/24 11:18 Heparin Anti-Xa, Unfract Sodium Potassium Chloride Carbon Dioxide Anion Gap BUN Creatinine Est Cr Clr Drug Dosing eGFR BUN/Creatinine Ratio Glucose POC Glucose 129 H Calcium Troponin I High Sens Diagnostic Findings Microbiology 09/15/24 14:05 Sputum, Expectorated Gram Stain - Final 09/15/24 14:05 Sputum, Expectorated Sputum Culture - Preliminary Haemo.influ betalactamase pos PG Care Time/CCT Total # of Minutes Spent Total Time Spent with Patient: Total time spent is greater than 50% in coordination of care (as documented) at patient's floor/unit and/or counseling patient: Coding Level of Care Code 17003 SUB INP/OBS CARE 350MIN Diagnoses COPD with exacerbation J44.1 Abnormal chest x-ray R93.89 Elevated troponin R79.89 CAD (coronary artery disease) I25.10 Hypercholesterolemia E78.00 Hypertension I10 Diabetes mellitus E11.9 Adenocarcinoma of lower lobe of right lung C34.31 Aortic stenosis I35.0 BPH w urinary obs/LUTS N40.1; N13.8 Chronic kidney disease (CKD) N18.9
[2024-09-16 14:40] LABS: ANTI-Xa, UFH(UnfractionatedHep 0.25 IU/ml (0.3-0.7)
[2024-09-16] MEDS: BUDESONIDE 0.25 MG/2 ML VIAL (PULMICORT) NEB SCH (14:44)
[2024-09-17 07:05] LABS: BUN Creatinine Ratio 28.5 (10-20); Calcium 9.6 mg/dl (8.6-10.3); Creatinine Clr Calc Pharmacy 42.5 ml/min; Magnesium 2.2 mg/dl (1.7-2.4)
--- NOTE | 2024-09-17 12:29 | Hospitalist Progress Note ---
Date of Service September 17, 2024 Assessment & Plan (1) COPD with exacerbation: (2) Abnormal chest x-ray: (3) Elevated troponin: (4) CAD (coronary artery disease): (5) Hypercholesterolemia: (6) Hypertension: (7) Diabetes mellitus: (8) Adenocarcinoma of lower lobe of right lung: (9) Aortic stenosis: (10) BPH w urinary obs/LUTS: (11) Chronic kidney disease (CKD): Plan 88yo male with history of T2DM, HTN, BPH, CKD stage 3b, hyperlipidemia, presumed CAD, prior lung cancer (adenocarcinoma) of the right lung s/p XRT 2023, blindness of right eye, prior tobacco use, aortic stenosis, and COPD who presents from home with his with respiratory symptoms starting on Wednesday of this week. He has had cough, congestion, sputum production, dyspnea on exertion (worse than his typical baseline chronic CANALES), chills, no appetite, fatigue/weakness, and sore throat. Denies any chest pain or chest tightness this week. #COPD with exacerbation - -COVID/flu/RSV negative; could easily have another viral process that triggered the illness (full [employer] panel not performed) -sputum cx with H Flu; changed doxy to augmentin BID -sensitivities of H Flu pending -cont scheduled Xopenex nebs TID -mucinex BID -cont umeclidinium/vilanterol inhaler daily -cont budesonide nebs BID -flutter valve & incentive spirometer -of note - cxr x 2 this admission without discrete pneumonia -due to ongoing bronchospasm ordered prednisone today - 40mg today, then 30mg tomorrow, and so forth #abnormal chest x-ray - -admit cxr with interstitial infiltrates -repeat cxr without any infiltrates -could have had mild pulm edema at admission that resolved s/p IV lasix on hospital day #1 -no evidence of pneumonia on repeat films -lasix/aldactone resumed #positive troponin - -myocardial demand ischemia in the setting of his respiratory illness felt most likely -he had an urgent echo in the ER due to the +troponin and this showed a new wall motion abnormality in the LV apex; although ACS is possible it is felt unlikely as stated by cardiology -2023 echo showed normal LV wall motion -he has presumed CAD based on prior records (2023 cardiology notes suggest presumed CAD) -same cardiology notes reference that the patient had a left heart cath in the and was told there was some CAD at that time -in the small chance that this was an ACS he will complete 48 hours of low-dose heparin infusion which will conclude this afternoon -cont asa 81mg, cont his beta jace, cont his statin -troponin peak was 692 -appreciate Dr Lopez's consult from [facility] [place] Cardiology; agree with recs for medical management of presumed, underlying CAD #question of acute HFpEF - -patient with multiple pulmonary symptoms, elevated BNP, and abnormal echo as above -s/p lasix in the ER -had no significant UOP with such but he felt mildly better (hard to say if it was bronchodilators given or the lasix given that helped him feel better) -resumed lasix/aldactone -cont Jardiance -cont meto succ -hold lisinopril #T2DM - -hold PO agents except Jardiance -cont novolog SSI -BSGs ac/hs -DM diet -may need to adjust insulins due to prednisone usage #BPH - -cont flomax #HTN - -cont meto succ -cont flomax -resume amlodipine -hold lisinopril #CKD stage 3b - -Creatinine today is stable at 1.37 -baseline Cr is 1.5 -BMP am #aortic stenosis - -mild -no apparent symptoms from such #glaucoma - -cont usual eye drops #DVT proph - -heparin drip d/c -if he stays beyond tomorrow then add heparin SC cleared by OT for home PT eval pending left message for pt's on home answering machine hopeful for d/c home tomorrow Admission and Anticipated Discharge Date Admission Date: September 14, 2024 Subjective patient continues to feel better still coughing but overall his breathing is much better some sputum still present no dyspnea at rest; mild CANALES still worked with OT today - did well, cleared for home +BM voiding w/o difficulty no chest pain or chest tightness Review of Systems Review of Systems: gen - no fevers or chills cv - no chest pain, no orthopnea pulm - mild wheezing Physical Exam Physical Exam: gen - sitting up in bed, looks well, no distress mouth - MMM; no lesions neck - no JVD heart - RRR, s1 s2, 2/6 systolic murmur RUSB lungs - mild end-exp wheezes especially when he coughs; decreased BS bases; no increased work of breathing; no rales abd - soft NT ND BS+; no HSM ext - no edema, pulses b/l feet 2+ Results & Data Results & Data Vital Signs (Past 12 Hours) Vital Signs Temp Pulse Resp BP Pulse Ox O2 Del Method 09/17/24 10:43 36.6 C 71 20 148/71 H 95 Room Air 09/17/24 09:00 Room Air 09/17/24 07:03 72 18 96 Room Air 09/17/24 07:00 36.5 C 65 20 154/83 H 100 Nebulizer 09/17/24 02:18 36.9 C 64 18 143/68 H 94 Room Air Laboratory Results Laboratory Results - last 24 hr 09/15/24 09/17/24 09/17/24 14:05 05:51 07:09 Sodium 136 Potassium 5.0 Chloride 100 Carbon Dioxide 33 H Anion Gap 3 BUN 39 H Creatinine 1.37 Est Cr Clr Drug Dosing 42.5 eGFR 50.24 BUN/Creatinine Ratio 28.5 H Glucose 146 H POC Glucose 136 H Calcium 9.6 Magnesium 2.2 Miscellaneous Test Pending 09/17/24 09/17/24 09/17/24 11:03 16:18 20:35 Sodium Potassium Chloride Carbon Dioxide Anion Gap BUN Creatinine Est Cr Clr Drug Dosing eGFR BUN/Creatinine Ratio Glucose POC Glucose 192 H 135 H 235 H Calcium Magnesium Miscellaneous Test PG Care Time/CCT Total # of Minutes Spent Total Time Spent with Patient: Total time spent is greater than 50% in coordination of care (as documented) at patient's floor/unit and/or counseling patient: Coding Level of Care Code 82937 SUB INP/OBS CARE 2/35MIN Diagnoses COPD with exacerbation J44.1 Abnormal chest x-ray R93.89 Elevated troponin R79.89 CAD (coronary artery disease) I25.10 Hypercholesterolemia E78.00 Hypertension I10 Diabetes mellitus E11.9 Adenocarcinoma of lower lobe of right lung C34.31 Aortic stenosis I35.0 BPH w urinary obs/LUTS N40.1; N13.8 Chronic kidney disease (CKD) N18.9
[2024-09-17] MEDS: predniSONE 20 MG TAB PO STA (12:43)
[2024-09-18 07:22] VITALS: RESP 19
[2024-09-18] MEDS ORDERED: amLODIPine BESYLATE 5 MG TAB PO SCH (09:00)
[2024-09-18] MEDS: predniSONE 10 MG TABLET PO SCH (09:33)
[2024-09-18 09:40] LABS: BUN Creatinine Ratio 31.5 (10-20); Calcium 10.1 mg/dl (8.6-10.3); Creatinine Clr Calc Pharmacy 39.1 ml/min; Potassium 4.7 mmol/L (3.5-5.1)
[2024-09-18 10:54] VITALS: BP 157/93; PULSE 64; TEMP 97.5; O2SAT 98
[2024-09-18] MEDS: amLODIPine BESYLATE 5 MG TAB PO ONE (12:22)
--- NOTE | 2024-09-18 13:52 | Discharge Summary ---
Discharge Summary Date of Service date of admission - September 14, 2024 date of discharge - September 18, 2024 Principal Dx & Hospital Course #1 = Principal Diagnosis (1) COPD with exacerbation: (2) Abnormal chest x-ray: (3) Elevated troponin: (4) CAD (coronary artery disease): (5) Hypercholesterolemia: (6) Hypertension: (7) Diabetes mellitus: (8) Adenocarcinoma of lower lobe of right lung: (9) Aortic stenosis: (10) BPH w urinary obs/LUTS: (11) Chronic kidney disease (CKD): Plan 88yo male with history of T2DM, HTN, BPH, CKD stage 3b, hyperlipidemia, presumed CAD, prior lung cancer (adenocarcinoma) of the right lung s/p XRT 2023, blindness of right eye, prior tobacco use, aortic stenosis, and COPD who presented from home with respiratory symptoms starting on Wednesday of the week of admission. He had cough, congestion, sputum production, dyspnea on exertion (worse than his typical baseline chronic CANALES), chills, no appetite, fatigue/weakness, and sore throat. Denied any chest pain or chest tightness. #COPD with exacerbation - -Chest x-ray x 2 this admission without discrete pneumonia -COVID/flu/RSV swab negative; could easily have had another viral process that triggered the illness (full respiratory Biofire panel not performed) -sputum culture, however, did yield Haemophilus Influenzae -had been on doxycycline since admission but CHANGED to Augmentin BID -sensitivities of H Flu were pending at discharge but it was a betalactamase positive strain -at discharge prescribed Augmentin 875mg BID x 7 days -while her received Xopenex nebs TID scheduled -at discharge prescribed a nebulizer machine + Xopenex nebs PRN -cont Stiolto inhaler daily -cont flutter valve & incentive spirometer -due to ongoing bronchospasm ordered prednisone starting with 40mg, and tapering off over about 1 week -prescription for prednisone given at discharge #abnormal chest x-ray - -admit cxr with interstitial infiltrates -repeat cxr without any infiltrates -could have had mild pulmonary edema at admission that resolved s/p IV lasix given in the ER -no evidence of pneumonia on repeat films -oral lasix/aldactone resumed, and he will continue these at discharge #positive troponin, ?ACS vs type 2 IA - -troponin peak was 692 -myocardial demand ischemia (type 2 IA) in the setting of his respiratory illness felt most likely -he had an urgent echo in the ER due to the +troponin and this showed a new wall motion abnormality in the LV apex, however (2023 echo showed normal LV wall motion) -although ACS was possible it was felt unlikely as stated by [facility] [place] as he did not have chest pain/chest tightness -he does have presumed CAD based on prior records (2023 cardiology notes suggest presumed CAD) -same cardiology notes reference that the patient had a left heart cath in the and was told there was some CAD at that time -in the small chance that this was an ACS he completed 48 hours of low-dose heparin infusion -he will continue asa 81mg, atorvastatin 20mg, and metoprolol succinate 50mg - all 3 meds once daily -after cardiology consultation the plan moving forward was trial of medical management of presumed, underlying CAD -if patient has ischemic symptoms in the future can consider left heart catheterization at that time -bottle of nitroglycerin tablets given for emergency purposes -he should f/u with Dr Artis Sebastian, [facility] [place], after discharge #question of acute HFpEF - -patient with multiple pulmonary symptoms, elevated BNP, and abnormal echo as above -s/p lasix IV in the ER -had no significant UOP with such but he felt mildly better (hard to say if it was bronchodilators given or the lasix given that helped him feel better) -resumed oral lasix/aldactone -cont Jardiance -cont meto succ -lisinopril held during the stay, and lisinopril held at discharge due to borderline creatinine level -he was compensated on physical exam at time of discharge #T2DM - -continue glipizide twice daily -continue empagliflozin daily #BPH - -cont flomax #HTN - -cont meto succ -cont flomax -cont amlodipine but at 1/2 the previous dose (will take 5mg rather than 10mg) -hold lisinopril at discharge as noted above #CKD stage 3b - -Creatinine 1.49 on day of discharge -baseline Creatinine is 1.5 #aortic stenosis - -mild -no symptoms from such #glaucoma - -cont usual eye drops cleared by PT/OT for home with his Notes For Next Care Provider Medication Changes From Visit 1. augmentin 875mg BID x 7 days 2. prednisone taper 3. neb machine 4. xopenex nebs prn 5. tessalon prn 6. nitro SL tabs prn chest pain 7. HOLD lisinopril 8. REDUCE amlodipine from 10mg/day ---> 5mg/day Admission HPI Per Admitting Provider 88yo male with history of T2DM, HTN, BPH, CKD stage 3b, hyperlipidemia, presumed CAD, prior lung cancer (adenocarcinoma) of the right lung s/p XRT 2023, blindness of right eye, prior tobacco use, aortic stenosis, and COPD who presents from home with his with respiratory symptoms starting on Wednesday of this week. He has had cough, congestion, sputum production, dyspnea on exertion (worse than his typical baseline chronic CANALES), chills, no appetite, fatigue/weakness, and sore throat. Denies any chest pain or chest tightness this week. Had an episode yesterday of having nausea and he was able to have a good "burp" which relieved the nausea. No vomiting. No diarrhea. No travel or sick contacts. He has h/o COPD but does not use albuterol prn at home. Denies LE edema, orthopnea, PND - but he did have a "severe cough" all night last pm per his . Discharge Exam gen - sitting at side of bed, looks well, no distress, mild occasional cough mouth - MMM; no lesions neck - no JVD heart - RRR, s1 s2, 2/6 systolic murmur RUSB lungs - mild end-exp wheezes especially when he coughs; decreased BS bases; no increased work of breathing; no rales abd - soft NT ND BS+; no HSM ext - no edema, pulses b/l feet 2+ Discharge Plan Discharge Items Patient Disposition: Home - Self-Care Reason For Visit: ACUTE BRONCHITIS Discharge Diagnosis: 1. acute bronchitis due to "H flu" bacteria - improving 2. elevated troponin (blood test for the heart) - cannot rule out that coronary artery disease led to a small heart event (heart attack) 3. coronary artery disease 4. abnormal echocardiogram suggestive of #3 Activity: As commented below Activity Comment: gradually increase activities as tolerated over the next 7-10 days Non-emergency contact: Primary Care Provider and [place] Call non-emergency contact if: you have any medication questions, your symptoms worsen and you have a fever Follow-up/Referrals: Chito Sebastian MD [Physician] - 10/10/24 10:00 am (Hospital follow up on October 10 at 10 am. The cardiology office will call you if there are any cancellations before this appointment.) Stephen Valentin, [Primary Care Provider] - 09/20/24 2:30 pm (Hospital follow up on September 20 at 2:30 pm.) Diet: Carb Consistent or DM2 and Heart Healthy Addtl Attending Provider Instructions: Mr Roth, You were hospitalized due to having acute bronchitis (no pneumonia was seen on 2 chest x-rays) as well as concerns for your heart. The cause of your bronchitis was due to a bacterial infection called "H flu" (no relationship to the flu virus). Your bronchitis improved with nebulizer treatments, steroids, and antibiotics. At time of admission your blood work for the heart called "troponins" was elevated. There are many things that can make the troponin level high including anything that stresses the body such as infections, injuries, etc. The troponin can also go up with heart attacks. An echocardiogram was done on your first hospital day and the echo showed that a small portion of the heart muscle may not be getting enough blood supply. Years ago you were told that you had coronary artery disease based on a heart catheterization. Thus, there was concern that perhaps you had had a small heart event leading up to your hospitalization. Dr John Lopez from cardiology (partners with Dr Sebastian) saw you in consult and reviewed options for your heart. At this time we are going to try medicines to treat presumed coronary disease. Recommendations - 1. for bronchitis - -take amoxicillin-clavulanate 875mg twice daily x 7 days -most common side effect of this antibiotic - diarrhea 2. for cough/congestion - -[id number] Mucinex up to 1200mg twice daily as needed -benzonatate (prescription) - 100mg every 8 hours as needed -xopenex nebulizer treatments - 1 neb every 6 hours as needed for cough/wheezing/congestion/shortness of breath 3. the Xopenex neb treatments will be picked up at the pharmacy. The neb machine itself has to be picked up from a medical supply store such as [employer] or any other dealer. 4. prednisone course - also for your bronchitis - start this tomorrow, 09/19. Take with food. It is a "taper." Know that the prednisone will raise your blood sugars over the next week. 5. nitroglycerin tablets - keep this bottle handy even when you leave your home. This is for emergency purposes if you have chest pain. Place 1 tablet under the tongue, repeat every 5 minutes with maximum of 3 in 15 minutes. If you have to take this medicine seek medical attention right away. 6. high blood pressure medicines - -HOLD your lisinopril for now -REDUCE your amlodipine from 10mg daily to 5mg daily; start this tomorrow, 09/19. Follow-up - see separate section Return to [facility] if - * you have fevers over 100.5 degrees * you have worsening shortness of breath despite taking all of the above medicines * you have chest pains * you take nitroglycerin tablets * you have severe diarrhea (3 or more liquid stools in 24 hours) * any other concerns It was our pleasure to care for you! -Dr Rey Pending Studies at Discharge: Yes Studies:: final sputum culture result Stand-Alone Forms: My [facility], Smoking Cessation Medications and DC Order Prescriptions: New prednisone 10 mg Tablet 10 mg PO DIRECTED Qty: 14 0RF Rx Instructions: start 09/19, take with food. 3 tabs PO QD x 2 days; 2 tabs PO QD x 3 days; 1 tab PO QD x 2 days. amoxicillin-pot clavulanate 875-125 mg Tablet 1 tab PO BIDM 7 Days Qty: 14 0RF levalbuterol HCl 1.25 mg/3 mL Solution For Nebulization 1.25 mg NEB Q6H PRN (Reason: cough/wheeze/shortness of breath) Qty: 90 0RF nitroglycerin [Nitrostat] 0.4 mg Tablet, Sublingual 0.4 mg sublingual Q5M PRN (Reason: chest pain) Qty: 1 0RF Rx Instructions: max 3 doses in 15 minutes. (DME) nebulizers Misc See Rx Instructions .Route Qty: 1 0RF Rx Instructions: As directed benzonatate 100 mg capsule 100 mg PO TID PRN (Reason: cough) Qty: 20 0RF Continued aspirin 81 mg tablet 81 mg PO HS lutein 6 mg tablet 6 mg PO HS erythromycin 5 mg/gram (0.5 %) ointment 1 applic OPR TID Patient Comments: right eye Rx Instructions: 1 applic into the eye(s) HS in the right eye; latanoprost 0.005 % drops 1 drp OPB HS Rx Instructions: 1 drp into the eye(s) HS into both eyes; loteprednol etabonate 0.5 % drops,suspension 1 drp OPR DAILY Patient Comments: right eye usually at noon Rx Instructions: 1 drp into the eye(s) daily into right eye; dorzolamide-timolol (PF) 2-0.5 % drops 1 drp OPB BID Patient Comments: both eyes Rx Instructions: 1 drp into the eye(s) BID into both eyes; (DME) Systane Contacts Drops See Rx Instructions .Route Rx Instructions: As directed for eye irritation multivitamin,ia-xvtq-[id number]-[id number]-min Tablet 1 tab PO QAM atorvastatin 40 mg tablet 20 mg PO HS tamsulosin 0.4 mg capsule 0.4 mg PO DAILY metoprolol succinate 50 mg tablet extended release 24 hr 50 mg PO QPM spironolactone 50 mg tablet 50 mg PO QAM glipizide 5 mg tablet 10 mg PO QAM glipizide 5 mg tablet 7.5 mg PO QPM PreserVision AREDS-2 250-90-40-1 mg Capsule 1 tab PO BID Stiolto Respimat 2.5-2.5 mcg/actuation mist 2 puff inhalation QAM Jardiance 10 mg tablet 10 mg PO QAM Changed amlodipine 10 mg tablet 5 mg PO QAM Qty: 0 0RF No Action (DME) nebulizer and compressor Device See Rx Instructions .ROUTE .MEDSUPPLY Qty: 1 0RF Rx Instructions: As directed (DME) nebulizer accessories Kit See Rx Instructions .ROUTE .MEDSUPPLY Qty: 1 0RF Rx Instructions: As directed furosemide 20 mg tablet 20 mg PO QAM Qty: 90 3RF Discharge Orders: Discharge Order (Routine); Ordered 09/18/24 Ordered By: Tao Pabon/Other Patient Handouts: Prednisone Oral Tablet, Amoxicillin/Clavulanate Oral Tablet, Acute Bronchitis, CAD Admission Data Admit Date/Time: 09/14/24 15:40 Attending Provider: Tao Rey Admit Provider: Tao Rey Primary Care Provider: Stephen Valentin Other Providers: Steve Lopez Other Interventions: Discharge Summary Assessment (RN) Last Done: 09/18/24 13:46 Hospital Stay Data Consultations [facility] PT, OT Procedures Performed Echocardiogram: Diagnostic Imagining Performed Chest X-Ray 09/14/24 11:42 XR chest 1V not portable CLINICAL HISTORY: Chest pain, nonspecific COMPARISON STUDY: 01/05/2024 FINDINGS: Heart size and pulmonary vasculature are normal. No effusion, consolidation, or pneumothorax. IMPRESSION: No acute findings. ACT 112: Negative or not required by law. Electronically signed by: Vinod Munoz M.D. 09/14/2024 12:12 PM Chest X-Ray 09/15/24 08:39 XR chest 2V PA/lateral CLINICAL HISTORY: CHF vs pneumonia COMPARISON STUDY: 09/14/2024 FINDINGS: Heart size and pulmonary vasculature are normal. Lungs are mildly hyperexpanded. No consolidation or pleural effusion seen. No pneumothorax. IMPRESSION: No pneumonia seen. ACT 112: Negative or not required by law. Electronically signed by: Vinod Munoz M.D. 09/15/2024 9:42 AM Pending Results Patient Have Any Pending Studies at Discharge: Yes Discharge Instructions Given to Patient (Per Discharging Provider) Mr Roth, Uday were hospitalized due to having acute bronchitis (no pneumonia was seen on 2 chest x-rays) as well as concerns for your heart. The cause of your bronchitis was due to a bacterial infection called "H flu" (no relationship to the flu virus). Your bronchitis improved with nebulizer treatments, steroids, and antibiotics. At time of admission your blood work for the heart called "troponins" was elevated. There are many things that can make the troponin level high including anything that stresses the body such as infections, injuries, etc. The troponin can also go up with heart attacks. An echocardiogram was done on your first hospital day and the echo showed that a small portion of the heart muscle may not be getting enough blood supply. Years ago you were told that you had coronary artery disease based on a heart catheterization. Thus, there was concern that perhaps you had had a small heart event leading up to your hospitalization. Dr John Lopez from cardiology (partners with Dr Sebastian) saw you in consult and reviewed options for your heart. At this time we are going to try medicines to treat presumed coronary disease. Recommendations - 1. for bronchitis - -take amoxicillin-clavulanate 875mg twice daily x 7 days -most common side effect of this antibiotic - diarrhea 2. for cough/congestion - -iwim-[id number]-ktmuahd Mucinex up to 1200mg twice daily as needed -benzonatate (prescription) - 100mg every 8 hours as needed -xopenex nebulizer treatments - 1 neb every 6 hours as needed for cough/wheezing/congestion/shortness of breath 3. the Xopenex neb treatments will be picked up at the pharmacy. The neb machine itself has to be picked up from a medical supply store such as [employer] or any other dealer. 4. prednisone course - also for your bronchitis - start this tomorrow, 09/19. Take with food. It is a "taper." Know that the prednisone will raise your blood sugars over the next week. 5. nitroglycerin tablets - keep this bottle handy even when you leave your home. This is for emergency purposes if you have chest pain. Place 1 tablet under the tongue, repeat every 5 minutes with maximum of 3 in 15 minutes. If you have to take this medicine seek medical attention right away. 6. high blood pressure medicines - -HOLD your lisinopril for now -REDUCE your amlodipine from 10mg daily to 5mg daily; start this tomorrow, 09/19. Follow-up - see separate section Return to [facility] if - * you have fevers over 100.5 degrees * you have worsening shortness of breath despite taking all of the above medicines * you have chest pains * you take nitroglycerin tablets * you have severe diarrhea (3 or more liquid stools in 24 hours) * any other concerns It was our pleasure to care for you! -Dr Rey Total Time Total Time Spent Total Time Spent (In Minutes): 45 Coding Level of Care Code 73690 INP/OBS DISCH >30 MIN Diagnoses COPD with exacerbation J44.1 Abnormal chest x-ray R93.89 Elevated troponin R79.89 CAD (coronary artery disease) I25.10 Hypercholesterolemia E78.00 Hypertension I10 Diabetes mellitus E11.9 Adenocarcinoma of lower lobe of right lung C34.31 Aortic stenosis I35.0 BPH w urinary obs/LUTS N40.1; N13.8 Chronic kidney disease (CKD) N18.9
[2024-09-18] MEDS ORDERED: LEVALBUTEROL 1.25 MG/3 ML NEB NEB SCH (19:00)
== END 2024-09-18 14:22 | disposition home or self-care (01) | DRG 190 ==
LOC: ED 11:27 → 2E 15:40